=== PATIENT | male | born 1955 | race Caucasian/White ===

== ENCOUNTER 2022-02-22 13:36 | Outpatient (CLI) | payer MEDICARE, SELFPAY ==
--- NOTE | 2022-02-22 14:00 | CRLHL7_ITS ---
For Patients: As a result of the Century Cures Act, medical imaging exams and procedure reports are released immediately into your electronic medical record. You may view this report before your referring provider. If you have questions, please contact your health care provider. INDICATION: Evaluate bladder diverticulum TECHNIQUE: CT pelvis without contrast and after the administration of 350 cc Cystografin through bladder catheter. COMPARISON: None FINDINGS: Fishman catheter is visualized within the bladder. Small locules of air within the bladder lumen likely post catheterization. Bladder wall is diffusely thickened and trabeculated. Bladder diverticulum extending off the right superior posterior aspect of the bladder measuring 7.6 x 6.6 x 12.2 centimeters. 6 millimeter calculus at the right UVJ and the medial aspect of the bladder diverticula with mild upstream right hydroureter and fat stranding adjacent to the distal ureter. Prostatomegaly with the prostate extending into the bladder neck. Diverticulosis. Small right fat filled inguinal hernia. Degenerative changes of the visualized lower lumbar spine. IMPRESSION: Large right posterior superior bladder diverticulum. 6 millimeter calculus at the right UVJ with upstream mild hydroureter and fat stranding adjacent to the ureter, correlate with clinical concern of urinary tract infection possibly involving the upper urinary tract. Prostatomegaly extends into the bladder neck. Diffusely thickened and trabeculated bladder wall. Please note that all CT scans at this facility use dose modulation, iterative reconstruction, and/or weight-based dosing when appropriate to reduce radiation dose to as low as reasonably achievable. Dictated by Evelin Quinonez MD @ 02/23/2022 4:04:29 PM (Electronically Signed)
== END 2022-02-22 13:37 | disposition home or self-care (01) ==
LOC: CT 13:38
PROVIDERS: PCP Physician Assistant Medical; Visit Provider Urology
DX: N32.3 Diverticulum of bladder (principal); N20.1 Calculus of ureter
CPT/HCPCS: 51600; 72194; Q9958; Q9967

== ENCOUNTER 2022-03-12 18:50 | Emergency (ER) | payer MEDICARE, SELFPAY ==
[2022-03-12] VITALS (16 sets, daily range): BP systolic 101–155; BP diastolic 63–83; PULSE 87–117; RESP 12–24; TEMP 37.8–39.2; O2SAT 92–97; BMI 24.8
--- NOTE | 2022-03-12 19:41 | CRLHL7_ITS ---
For Patients: As a result of the Cures Act, medical imaging exams and procedure reports are released immediately into your electronic medical record. You may view this report before your referring provider. If you have questions, please contact your health care provider. INDICATION: Fever. TECHNIQUE: Chest 1 view. COMPARISON: None. FINDINGS: Low lung volumes with mild perihilar atelectasis. No focal consolidation, pleural effusion, or pneumothorax. Normal heart size and pulmonary vascularity. Slight elevation of the right hemidiaphragm. Surgical clips right upper quadrant. The bones are unremarkable. IMPRESSION: No acute cardiopulmonary findings. Dictated by Gabriella Rosas MD @ 03/12/2022 8:46:08 PM (Electronically Signed)
--- NOTE | 2022-03-12 19:49 | ED_ITS ---
HPI - General Adult General Chief complaint: Fever Stated complaint: Fever Blood Clots in Cath Time Seen by Provider: 03/12/22 19:36 History of Present Illness HPI narrative: Patient is a 66-year-old male coming in today concerned about a fever. Fever started this afternoon. Patient is postop day 8 status post a diverticulum resection of his bladder. He does have a leg bag catheter in place. He states that this morning there were blood clots in his urine bag. He has a headache. He has decreased appetite and feels slightly nauseated. He has had no vomiting. He denies coughing, chest pain, shortness of breath. He states that his abdominal pain is improving. He denies any changes in his medications in the last week. States that he has not had any oxycodone since last Friday, had 1 again today because of the headache. Has been having regular bowel movements and is taking MiraLax for that. He states that when he had the blood cause this morning he had a lot of dysuria but that has since passed. His past medical history is significant for arthritis, history of pancreatitis, history of nephrolithiasis, prostate cancer. He has had a tonsillectomy, cholecystectomy, right ankle ORIF Related Data Home Medications Medication Instructions Recorded Confirmed latanoprost 0.005 % eye drops ml OPHTHALMIC (EYE) 03/01/22 03/01/22 tamsulosin 0.4 mg capsule ea PO 03/01/22 03/01/22 timolol maleate 0.5 % eye drops ml OPHTHALMIC (EYE) 03/01/22 03/01/22 Previous Rx's Medication Instructions Recorded cephalexin 500 mg capsule 500 mg PO QID 7 Days #28 cap 03/12/22 Allergies Allergy/AdvReac Type Severity Reaction Status Date / Time atorvastatin AdvReac Mild Headache Verified 03/01/22 08:48 pravastatin AdvReac Mild upset Verified 03/01/22 08:48 stomach, headache Pollen Allergy Unknown Uncoded 03/01/22 08:48 Review of Systems Status of ROS: Reports: 10 or more systems reviewed and unremarkable except as noted in History and below [facility] Medical History Pancreatitis Surgical History History of ankle surgery History of cholecystectomy History of tonsillectomy Normal colonoscopy Family History Paternal Grandfather Amyotrophic lateral sclerosis (ALS) Stroke Polycythemia Brother Diabetes Social History Narrative: 2 children, 1 son-1 daughter never smoked social alcohol use- 10 servings per week Smoking Status: Never smoker Second hand tobacco smoke exposure: No Non-prescribed substance use: denies use service: No Exam Narrative: Exam Narrative: Well-nourished well-developed patient in no acute distress. Alert and oriented. Answers questions appropriately. Mood and affect are appropriate. Thoughts are goal oriented and rational. No tangential or magical thinking noted. Patient speaks in full sentences without needing to catch their breath. Does not appear toxic. HEENT: Normocephalic atraumatic. Pupils are equally round reactive to light. Extraocular muscles are intact. Conjunctivae are moist without any icterus noted. Slightly dry mucous membranes. Posterior pharynx is normal. Neck is soft without any lymphadenopathy or thyromegaly. No masses are appreciated. Cardiovascular: Heart is regular rate and rhythm S1 and S2 are present without any murmurs. Lungs: Patient has bibasilar crackles bilaterally. Takes deep breaths without discomfort. Abdomen: Soft and nondistended with normal bowel sounds. Mild suprapubic tenderness as expected. Urinary catheter in place. Extremities: Bilateral lower extremities are without edema. Normal DP and PT pulses. Skin: Well perfused without any obvious rashes. Const: Vital Signs, click to edit/add: Vital Signs - 24 hr 03/12/22 19:15 03/12/22 19:50 03/12/22 20:15 Temperature 102.6 F H 102.2 F H Pulse Rate [Pulse Oximeter] 108 H Pulse Rate [Right Pulse Oximeter] 117 H 108 H Respiratory Rate 18 16 22 Blood Pressure [Ri ght Arm] 145/83 H Blood Pressure [Ri ght Upper Arm] 155/83 H 145/83 H Pulse Oximetry 95 94 95 03/12/22 20:30 03/12/22 20:45 03/12/22 21:00 Temperature Pulse Rate [Pulse Oximeter] Pulse Rate [Right Pulse Oximeter] 105 H 102 H 102 H Respiratory Rate 24 22 22 Blood Pressure [Ri ght Arm] Blood Pressure [Ri ght Upper Arm] 141/77 H 145/75 H 140/76 H Pulse Oximetry 94 95 95 03/12/22 21:15 03/12/22 21:30 03/12/22 21:53 Temperature 100.0 F H Pulse Rate [Pulse Oximeter] Pulse Rate [Right Pulse Oximeter] 105 H 105 H Respiratory Rate 18 18 Blood Pressure [Ri ght Arm] Blood Pressure [Ri ght Upper Arm] 130/74 137/73 Pulse Oximetry 95 95 03/12/22 22:00 03/12/22 22:15 03/12/22 22:30 Temperature 100.0 F H Pulse Rate [Pulse Oximeter] Pulse Rate [Right Pulse Oximeter] 101 H 97 94 Respiratory Rate 18 18 19 Blood Pressure [Ri ght Arm] Blood Pressure [Ri ght Upper Arm] 130/69 125/74 117/74 Pulse Oximetry 93 97 92 03/12/22 22:45 03/12/22 23:00 03/12/22 23:15 Temperature Pulse Rate [Pulse Oximeter] Pulse Rate [Right Pulse Oximeter] 90 90 90 Respiratory Rate 12 19 18 Blood Pressure [Ri ght Arm] Blood Pressure [Ri ght Upper Arm] 115/66 109/63 106/67 Pulse Oximetry 92 93 92 Course Course Hospital Course: IV was started and labs were drawn. Patient did have a significantly elevated white cell count and his urine appeared to be the source of infection. While he was here he received 2 L of normal saline IV Rocephin. It was after about 1.5 L of saline that his temperature came down, his pulse normalized and patient felt significantly better. He was not hypotensive, did not have an elevated lactate- so while he did fit SIRS criteria prior to treatment, he did not fit sepsis criteria. With such improvement in his symptoms it was decided to discharge the patient home. He has a follow-up appointment tomorrow to have a cystogram and he has a follow-up appointment on which is the day after tomorrow also. He understands that if anything does not feel right he should return to the ER right away. Patient feels very comfortable with this plan, is happy that he is going home. He had no other questions or concerns. Patient will be discharged home with Keflex. Blood and urine cultures pending. Vital Signs Vital signs: Initial Vital Signs Temperature 102.6 F H 03/12/22 19:15 Temperature Source Temporal Artery Scan 03/12/22 19:15 Pulse Rate 117 H 03/12/22 19:15 Respiratory Rate 18 03/12/22 19:15 Blood Pressure 155/83 H 03/12/22 19:15 Blood Pressure Mean 107 03/12/22 19:15 Blood Pressure Position Sitting 03/12/22 19:15 Pulse Oximetry 95 03/12/22 19:15 Oxygen Delivery Method 03/12/22 19:15 Vital Signs Temperature 102.6 F H 03/12/22 19:15 Pulse Rate 117 H 03/12/22 19:15 Respiratory Rate 18 03/12/22 19:15 Blood Pressure 155/83 H 03/12/22 19:15 Pulse Oximetry 95 03/12/22 19:15 Temperature 100.0 F H 03/12/22 22:15 Pulse Rate 90 03/12/22 23:15 Respiratory Rate 18 03/12/22 23:15 Blood Pressure 106/67 03/12/22 23:15 Pulse Oximetry 92 03/12/22 23:15 Medical Decision Making MDM Narrative Medical decision making narrative: 66-year-old male with a postoperative UTI and fever, fitting SIRS criteria- treated in the ER with good results and amelioration of his symptoms- pulse came down to 90, temp came down to 99, blood pressure was stable. Patient will be discharged home with Keflex. He has 2 follow-up appointments already scheduled in the next 24 and 48 hours. He understands to have a low threshold to return to the ER. He had no other questions. Medical Records Medical records reviewed: Yes I reviewed the patient's medical records Lab Data Lab results reviewed: Yes I reviewed the patient's lab results Lab results narrative: D-dimer was elevated-however given his current infection and lack of respiratory symptoms including cough, chest pain, or shortness of breath, I do not feel this represents a PE. Troponin was normal, EKG shows sinus tachycardia. Labs: Lab Results 03/12/22 03/12/22 03/12/22 Range/Units 19:42 19:50 19:50 WBC 27.02 H* (4.50-11.00) K/uL RBC 5.07 (4.30-5.90) m/uL Hgb 15.5 (13.5-17.5) gm/dL Hct 45.6 (37.0-53.0) % MCV 90 (80-100) fL MCH 31 (26-34) pg MCHC 34 (32-36) gm/dL RDW Coeff of Sonal 11.9 (11.5-15.5) % Plt Count 393 (140-440) K/uL Neut % (Auto) 85.4 H (42.0-72.0) % Lymph % (Auto) 5.3 L (20-44) % [place] % (Auto) 7.3 (0.0-11.0) % Eos % (Auto) 1.1 (0.0-7.0) % Baso % (Auto) 0.3 (0.0-3.0) % Neut # (Auto) 23.10 H (1.7-7.0) K/uL Lymph # (Auto) 1.40 (0.90-2.90) K/uL [place] # (Auto) 2.00 H (0.00-0.90) K/UL Eos # (Auto) 0.30 (0.00-0.50) K/uL Baso # (Auto) 0.10 (0.00-0.30) K/uL Abs Immat Gran (auto) 0.17 (0.00-0.30) K/uL Diff Slide Review Acceptable Review (Acceptable) ESR (2-15) mm/hr D-Dimer Quant (PE/DVT) 1.24 H (0.00-0.50) ug/ml Sodium (135-149) mmol/L Potassium (3.6-5.1) mmol/L Chloride (96-114) mmol/L Carbon Dioxide (20-32) mmol/L BUN (7-30) mg/dL Creatinine (0.5-1.5) mg/dL Estimated Creat Clear Estimated GFR ml/min Glucose (60-115) mg/dL Lactate (0.5-1.9) mmol/L Calcium (8.4-10.6) mg/dL Total Bilirubin (0.1-1.5) mg/dL Direct Bilirubin (0.0-0.5) mg/dL AST (12-35) U/L ALT (4-50) U/L Alkaline Phosphatase (40-150) U/L C-Reactive Protein (0.5-1.0) mg/dL Total Protein (6.0-8.3) g/dL Albumin (3.3-5.0) g/dL Urine Color Yellow (Yellow) Urine Appearance Cloudy A (Clear) Urine pH 6.0 (5.0-8.5) Ur Specific [place] 1.020 (1.000-1.030) Urine Protein 1+ A (Negative) Urine Glucose (UA) Negative (Negative) Urine Ketones Negative (Negative) Urine Blood 3+ A (Negative) Urine Nitrite Positive A (Negative) Urine Bilirubin Negative (Negative) Urine Urobilinogen 0.2 (0.2-1.0) Ur Leukocyte Esterase 3+ A (Negative) Urine RBC 10-25 A (0-2) Urine WBC 10-25 A (0-5) Ur Squamous Epith Cells None (None-Few) Urine Bacteria Moderate A (None) SARS-CoV-2 (PCR) (Negative) Influenza Type A (PCR) (Negative) Influenza Type B (PCR) (Negative) 03/12/22 03/12/22 03/12/22 Range/Units 19:50 19:50 19:50 WBC (4.50-11.00) K/uL RBC (4.30-5.90) m/uL Hgb (13.5-17.5) gm/dL Hct (37.0-53.0) % MCV (80-100) fL MCH (26-34) pg MCHC (32-36) gm/dL RDW Coeff of Sonal (11.5-15.5) % Plt Count (140-440) K/uL Neut % (Auto) (42.0-72.0) % Lymph % (Auto) (20-44) % [place] % (Auto) (0.0-11.0) % Eos % (Auto) (0.0-7.0) % Baso % (Auto) (0.0-3.0) % Neut # (Auto) (1.7-7.0) K/uL Lymph # (Auto) (0.90-2.90) K/uL [place] # (Auto) (0.00-0.90) K/UL Eos # (Auto) (0.00-0.50) K/uL Baso # (Auto) (0.00-0.30) K/uL Abs Immat Gran (auto) (0.00-0.30) K/uL Diff Slide Review (Acceptable) ESR 15 (2-15) mm/hr D-Dimer Quant (PE/DVT) (0.00-0.50) ug/ml Sodium 134 L (135-149) mmol/L Potassium 3.8 (3.6-5.1) mmol/L Chloride 99 (96-114) mmol/L Carbon Dioxide 28 (20-32) mmol/L BUN 13 (7-30) mg/dL Creatinine 0.9 (0.5-1.5) mg/dL Estimated Creat Clear 69.35 Estimated GFR 94 ml/min Glucose 113 (60-115) mg/dL Lactate (0.5-1.9) mmol/L Calcium 8.8 (8.4-10.6) mg/dL Total Bilirubin 0.7 (0.1-1.5) mg/dL Direct Bilirubin 0.3 (0.0-0.5) mg/dL AST 32 (12-35) U/L ALT 48 (4-50) U/L Alkaline Phosphatase 120 (40-150) U/L C-Reactive Protein 2.1 H (0.5-1.0) mg/dL Total Protein 7.2 (6.0-8.3) g/dL Albumin 4.2 (3.3-5.0) g/dL Urine Color (Yellow) Urine Appearance (Clear) Urine pH (5.0-8.5) Ur Specific [place] (1.000-1.030) Urine Protein (Negative) Urine Glucose (UA) (Negative) Urine Ketones (Negative) Urine Blood (Negative) Urine Nitrite (Negative) Urine Bilirubin (Negative) Urine Urobilinogen (0.2-1.0) Ur Leukocyte Esterase (Negative) Urine RBC (0-2) Urine WBC (0-5) Ur Squamous Epith Cells (None-Few) Urine Bacteria (None) SARS-CoV-2 (PCR) Negative SARS-CoV-2 (Negative) Influenza Type A (PCR) Negative PCR FLU A (Negative) Influenza Type B (PCR) Negative PCR FLU B (Negative) 03/12/22 03/12/22 Range/Units 19:50 19:50 WBC (4.50-11.00) K/uL RBC (4.30-5.90) m/uL Hgb (13.5-17.5) gm/dL Hct (37.0-53.0) % MCV (80-100) fL MCH (26-34) pg MCHC (32-36) gm/dL RDW Coeff of Sonal (11.5-15.5) % Plt Count (140-440) K/uL Neut % (Auto) (42.0-72.0) % Lymph % (Auto) (20-44) % [place] % (Auto) (0.0-11.0) % Eos % (Auto) (0.0-7.0) % Baso % (Auto) (0.0-3.0) % Neut # (Auto) (1.7-7.0) K/uL Lymph # (Auto) (0.90-2.90) K/uL [place] # (Auto) (0.00-0.90) K/UL Eos # (Auto) (0.00-0.50) K/uL Baso # (Auto) (0.00-0.30) K/uL Abs Immat Gran (auto) (0.00-0.30) K/uL Diff Slide Review (Acceptable) ESR (2-15) mm/hr D-Dimer Quant (PE/DVT) (0.00-0.50) ug/ml Sodium (135-149) mmol/L Potassium (3.6-5.1) mmol/L Chloride (96-114) mmol/L Carbon Dioxide (20-32) mmol/L BUN (7-30) mg/dL Creatinine (0.5-1.5) mg/dL Estimated Creat Clear Estimated GFR ml/min Glucose (60-115) mg/dL Lactate 1.5 (0.5-1.9) mmol/L Calcium (8.4-10.6) mg/dL Total Bilirubin Cancelled (0.1-1.5) mg/dL Direct Bilirubin Cancelled (0.0-0.5) mg/dL AST Cancelled (12-35) U/L ALT Cancelled (4-50) U/L Alkaline Phosphatase Cancelled (40-150) U/L C-Reactive Protein (0.5-1.0) mg/dL Total Protein Cancelled (6.0-8.3) g/dL Albumin Cancelled (3.3-5.0) g/dL Urine Color (Yellow) Urine Appearance (Clear) Urine pH (5.0-8.5) Ur Specific [place] (1.000-1.030) Urine Protein (Negative) Urine Glucose (UA) (Negative) Urine Ketones (Negative) Urine Blood (Negative) Urine Nitrite (Negative) Urine Bilirubin (Negative) Urine Urobilinogen (0.2-1.0) Ur Leukocyte Esterase (Negative) Urine RBC (0-2) Urine WBC (0-5) Ur Squamous Epith Cells (None-Few) Urine Bacteria (None) SARS-CoV-2 (PCR) (Negative) Influenza Type A (PCR) (Negative) Influenza Type B (PCR) (Negative) Imaging Data CT scan - abdomen: Attestation: I have reviewed the pertinent imaging results. Radiologist's impression: FINDINGS: Lower chest: Unremarkable. Liver: Normal in size and attenuation. No suspicious masses. Gallbladder and bile ducts: Post cholecystectomy. Pancreas: Unremarkable. No mass or inflammation. Spleen: Normal in size. No masses. Adrenal glands: Normal in size. No nodules. Kidneys: 3 nonobstructive stones are present in the right kidney. Few tiny nonobstructive stones are in the left kidney. A 6 mm stone appears to be in the left base of the urinary bladder visualized on series 2, image 133. This appears to be adjacent to the UVJ. No hydronephrosis. GI tract: Unremarkable. Normal in caliber. No sign of mass or inflammation. Normal appendix. Vasculature: Abdominal aorta is normal in caliber. Lymph nodes: No lymphadenopathy. Peritoneum/Abdominal Wall: Postoperative changes present in the anterior abdominal wall including subcutaneous air. Pelvic organs: Fishman catheter is within a decompressed bladder. Previously seen large bladder diverticulum is no longer present. There are inflammatory changes in this area. No defined fluid collection to suggest abscess or hematoma. Prostate gland is moderately enlarged. Bones: Unremarkable for age. IMPRESSION: 1. There are postoperative changes presumably from resection of a large urinary bladder diverticulum. There are inflammatory changes in this area but no defined fluid collection to suggest abscess or hematoma. 2. Postoperative changes are otherwise unremarkable. 3. Bilateral nonobstructive nephrolithiasis. 4. No other specific finding to explain fever. Chest x-ray: Attestation: I have reviewed the pertinent imaging results. My impression: Normal chest Radiologist's impression: FINDINGS: Low lung volumes with mild perihilar atelectasis. No focal consolidation, pleural effusion, or pneumothorax. Normal heart size and pulmonary vascularity. Slight elevation of the right hemidiaphragm. Surgical clips right upper quadrant. The bones are unremarkable. IMPRESSION: No acute cardiopulmonary findings. ECG Data Attestation: I personally reviewed and interpreted this ECG as follows: (Sinus tachycardia) Critical Care Time Critical Care Time Total Critical Care Time in Minutes: 90 Discharge Plan Discharge Clinical Impression: SIRS (systemic inflammatory response syndrome), Postoperative urinary tract infection Condition: Improved Additional Instructions: Start antibiotic tomorrow, take your 1st dose in the morning. Increase your amount of daily fluids. Keep all follow-up appointments as scheduled. Return to the ER if you have increasing weakness, pain, fever that does not respond to Tylenol, or vomiting. Prescriptions: New cephalexin 500 mg capsule 500 mg PO QID 7 Days Qty: 28 0RF No Action tamsulosin 0.4 mg capsule PO 0RF Label Comments: TAKE TWO CAPSULES BY MOUTH EVERY DAY latanoprost 0.005 % drops ophthalmic (eye) 0RF Label Comments: PLACE ONE DROP IN EACH EYE ONCE DAILY IN THE EVENING timolol maleate 0.5 % drops ophthalmic (eye) 0RF Label Comments: INSTILL ONE DROP IN EACH EYE ONCE DAILY Follow Up/Referrals: Carlos Eduardo Wilson PA-C [Primary Care Provider] - Stand [facility]
[2022-03-12 20:06] LABS: Lactate* 1.5 mmol/L (0.5-1.9)
[2022-03-12 20:12] LABS: Basophils Percent Auto 0.3 % (0.0-3.0); Eosinophils Percent Auto 1.1 % (0.0-7.0); Hematocrit 45.6 % (37.0-53.0); Hemoglobin* 15.5 gm/dL (13.5-17.5); Immature Granulocytes Abs Auto 0.17 K/uL (0.00-0.30); Lymphocytes Percent Auto 5.3 % (20-44); Mean Corpuscular HGB Conc 34 gm/dL (32-36); Mean Corpuscular Hemoglobin 31 pg (26-34); Mean Corpuscular Volume 90 fL (80-100); Monocytes Percent Auto 7.3 % (0.0-11.0); Neutrophils Percent Auto 85.4 % (42.0-72.0); Platelet Count* 393 K/uL (140-440); RDW Coefficient of Variation % 11.9 % (11.5-15.5); Red Blood Count 5.07 m/uL (4.30-5.90)
[2022-03-12] MEDS: ACETAMINOPHEN 500 MG TABLET 1000 MG PO (20:20)
[2022-03-12] MEDS: 0.9 % SODIUM CHLORIDE 1000 ml 1,000 ML IV ×2 (20:28→21:53)
[2022-03-12 20:44] LABS: Potassium* 3.8 mmol/L (3.6-5.1)
[2022-03-12 20:46] LABS: Creatinine* 0.9 mg/dL (0.5-1.5); Est. Creatinine Clearance* 69.35; Estimated Glomerular Filt Rate 94 ml/min
[2022-03-12 20:47] LABS: Blood Urea Nitrogen* 13 mg/dL (7-30); Carbon Dioxide* 28 mmol/L (20-32); Glucose* 113 mg/dL (60-115)
[2022-03-12 20:50] LABS: C Reactive Protein* 2.1 mg/dL (0.5-1.0)
[2022-03-12 20:54] LABS: Albumin* 4.2 g/dL (3.3-5.0); Chloride* 99 mmol/L (96-114); Sodium* 134 mmol/L (135-149)
[2022-03-12 20:58] LABS: Alanine Aminotransferase* 48 U/L (4-50); Alkaline Phosphatase* 120 U/L (40-150); Aspartate Amino Transferase* 32 U/L (12-35); Bilirubin Direct* 0.3 mg/dL (0.0-0.5); Bilirubin Total* 0.7 mg/dL (0.1-1.5); Calcium* 8.8 mg/dL (8.4-10.6); Total Protein* 7.2 g/dL (6.0-8.3)
[2022-03-12 20:59] LABS: PCR FLU A Negative PCR FLU A (Negative); SARS PCR* Negative SARS-CoV-2 (Negative)
[2022-03-12 21:00] LABS: PCR FLU B Negative PCR FLU B (Negative)
--- NOTE | 2022-03-12 21:01 | PC.NURSE ---
critical WBC 27.[address] Olmos
[2022-03-12 21:03] LABS: Appearance Urine Cloudy (Clear); Bilirubin Urine Negative (Negative); Blood Urine 3+ (Negative); Color Urine Yellow (Yellow); Glucose Urine Negative (Negative); Ketones Urine Negative (Negative); Leukocyte Esterase Urine 3+ (Negative); Nitrite Urine Positive (Negative); Protein Urine 1+ (Negative); Urobilinogen Urine 0.2 (0.2-1.0)
[2022-03-12 21:03] LABS: Slide Review Reflex Yes; White Blood Count* 27.02 K/uL (4.50-11.00)
[2022-03-12 21:04] LABS: Slide Review Acceptable Review (Acceptable)
[2022-03-12 21:08] LABS: Bacteria Urine Moderate
[2022-03-12 21:09] LABS: D Dimer Quantitative* 1.24 ug/ml (0.00-0.50)
[2022-03-12 21:29] LABS: Erythrocyte SedimentationRate* 15 mm/hr (2-15)
--- NOTE | 2022-03-12 21:33 | CRLHL7_ITS ---
For Patients: As a result of the Century Cures Act, medical imaging exams and procedure reports are released immediately into your electronic medical record. You may view this report before your referring provider. If you have questions, please contact your health care provider. INDICATION: Postop fever. TECHNIQUE: CT abdomen and pelvis without contrast. COMPARISON: 02/22/2022. FINDINGS: Lower chest: Unremarkable. Liver: Normal in size and attenuation. No suspicious masses. Gallbladder and bile ducts: Post cholecystectomy. Pancreas: Unremarkable. No mass or inflammation. Spleen: Normal in size. No masses. Adrenal glands: Normal in size. No nodules. Kidneys: 3 nonobstructive stones are present in the right kidney. Few tiny nonobstructive stones are in the left kidney. A 6 mm stone appears to be in the left base of the urinary bladder visualized on series 2, image 133. This appears to be adjacent to the UVJ. No hydronephrosis. GI tract: Unremarkable. Normal in caliber. No sign of mass or inflammation. Normal appendix. Vasculature: Abdominal aorta is normal in caliber. Lymph nodes: No lymphadenopathy. Peritoneum/Abdominal Wall: Postoperative changes present in the anterior abdominal wall including subcutaneous air. Pelvic organs: Fishman catheter is within a decompressed bladder. Previously seen large bladder diverticulum is no longer present. There are inflammatory changes in this area. No defined fluid collection to suggest abscess or hematoma. Prostate gland is moderately enlarged. Bones: Unremarkable for age. IMPRESSION: 1. There are postoperative changes presumably from resection of a large urinary bladder diverticulum. There are inflammatory changes in this area but no defined fluid collection to suggest abscess or hematoma. 2. Postoperative changes are otherwise unremarkable. 3. Bilateral nonobstructive nephrolithiasis. 4. No other specific finding to explain fever. Please note that all CT scans at this facility use dose modulation, iterative reconstruction, and/or weight-based dosing when appropriate to reduce radiation dose to as low as reasonably achievable. Dictated by Raciel Pinedo MD @ 03/12/2022 11:31:08 PM (Electronically Signed)
[2022-03-12] MEDS: cefTRIAXone 1 GM in 0.9 % SODIUM CHLORIDE Mini-bag 100 ML IVPB (21:54)
== END 2022-03-12 23:54 | disposition home or self-care (01) ==
PROVIDERS: Emergency Provider Family Medicine; PCP Physician Assistant Medical
DX: R50.9 Fever, unspecified (principal); R65.10 Systemic inflammatory response syndrome (SIRS) of non-infectious origin without acute organ dysfunction
CPT/HCPCS: 36415; 71045; 74176; 80048; 80076; 81001; 83605; 84484; 85025; 85379; 85651; 86140; 87040; 87086; 87186; 87502; 87635; 93005; 96365; 99285; 99291; 99292; A9270; J0696; J7030

== ENCOUNTER 2022-03-13 14:24 | Outpatient (CLI) | payer MEDICARE, SELFPAY ==
--- NOTE | 2022-03-13 15:00 | CRLHL7_ITS ---
For Patients: As a result of the Century Cures Act, medical imaging exams and procedure reports are released immediately into your electronic medical record. You may view this report before your referring provider. If you have questions, please contact your health care provider. Indication: FOLLOW UP DIVERTICULUM OF BLADDER. HAD SURGERY 1 WEEK AGO TO REPAIR DIVERTICULUM Technique: CT pelvis performed without intravenous contrast. 140 cc Gastrografin injected through the indwelling Fishman catheter into the bladder. Prevoid and postvoid images acquired with routine reformations. Please note that all CT scans at this facility use dose modulation, iterative reconstruction, and/or weight-based dosing when appropriate to reduce radiation dose to as low as reasonably achievable. Comparison: 03/12/22, 02/22/2022 Findings: Postop changes large right bladder diverticulum resection again noted with postoperative subcutaneous and intrapelvic free air. Mild postop inflammatory changes surrounding the bladder again noted. Diffuse bladder wall thickening is present with trabeculation. No contrast extravasation. There is a lobular mass within the posterior bladder measuring 2.1 cm. Postvoid images demonstrate adjacent bladder calcifications without evidence of extravasation. Chronic sigmoid diverticulosis is noted. No drainable fluid collection. Right inguinal hernia containing fat. No fracture. Impression: Similar postop changes with postoperative related subcutaneous/intrapelvic free-air and mild pelvic stranding without drainable abscess or fluid collection. No extravasation of contrast from the bladder to suggest leakage. Diffuse bladder wall thickening with trabeculation again noted. There is a mass within the posterior bladder measuring 2.1 cm. Stable right inguinal hernia containing fat measuring 3.9 cm. Chronic sigmoid diverticulosis. Please note that all CT scans at this facility use dose modulation, iterative reconstruction, and/or weight-based dosing when appropriate to reduce radiation dose to as low as reasonably achievable. Dictated by Jean Paul Fernando MD @ 03/14/2022 10:51:03 AM (Electronically Signed)
== END 2022-03-13 14:25 | disposition home or self-care (01) ==
LOC: CT 14:25
PROVIDERS: PCP Physician Assistant Medical; Visit Provider Urology
DX: N32.3 Diverticulum of bladder (principal); K40.90 Unilateral inguinal hernia, without obstruction or gangrene, not specified as recurrent; K57.30 Diverticulosis of large intestine without perforation or abscess without bleeding
CPT/HCPCS: 51600; 72194; Q9958

== ENCOUNTER 2022-04-03 07:59 | Outpatient (CLI) | payer MEDICARE, SELFPAY ==
--- NOTE | 2022-04-03 09:30 | CRLHL7_ITS ---
For Patients: As a result of the Century Cures Act, medical imaging exams and procedure reports are released immediately into your electronic medical record. You may view this report before your referring provider. If you have questions, please contact your health care provider. Indication: POST PRECEDURAL PAIN. BURNING WITH URINATION Technique: Postcontrast CT abdomen and pelvis. 90 cc Isovue 370 intravenous contrast. Delayed images through the pelvis also performed. Routine reformations acquired. Please note that all CT scans at this facility use dose modulation, iterative reconstruction, and/or weight-based dosing when appropriate to reduce radiation dose to as low as reasonably achievable. Comparison: 03/13/22, 03/12/22, 02/22/2022. Findings: Fishman catheter is no longer present. There is right lateral bladder wall thickening measuring up to 1.9 cm which is similar to the prior studies. Postop changes to the right posterior lateral bladder wall noted from large bladder diverticulum resection. There is no extravasation of contrast. Normal appearance of the right distal ureter. Chronic curvilinear density adjacent to the right lateral bladder wall and chronic right lower pelvic phlebolith. The prostate is enlarged with lobular masslike area along the superior prostate. Diminished bladder wall thickening involving the left bladder wall compared to the prior studies. Stable appearance of the small fat filled right inguinal hernia. No drainable fluid collection or abscess. Sigmoid diverticulosis. Resolution of previously noted postoperative free air. Normal renal enhancement bilaterally. Nonobstructing right renal stones. Stable nodule adjacent to the right adrenal gland. Left adrenal gland normal. Spleen unremarkable. Normal pancreas. No intrahepatic mass. No ascites. Gallbladder absent. No bowel obstruction. Postop changes midline abdominal wall without incisional hernia. Lung bases clear. No fracture. Degenerative changes. Impression: Persistent right lateral bladder wall thickening status post right bladder diverticulum resection. Fishman catheter has been removed. For solution of postoperative free air. Also resolution of bladder wall thickening elsewhere including the left bladder wall and anterior bladder wall. No abscess or pelvic free fluid. Normal appearance of the right distal ureter. No hydronephrosis. No extravasation of contrast. Please note that all CT scans at this facility use dose modulation, iterative reconstruction, and/or weight-based dosing when appropriate to reduce radiation dose to as low as reasonably achievable. Dictated by Jean Paul Fernando MD @ 04/03/2022 9:06:48 AM (Electronically Signed)
== END 2022-04-03 08:00 | disposition home or self-care (01) ==
PROVIDERS: PCP Physician Assistant Medical
DX: G89.18 Other acute postprocedural pain (principal); R30.9 Painful micturition, unspecified
CPT/HCPCS: 74177; Q9967

== ENCOUNTER 2022-10-15 08:02 | Outpatient (CLI) | payer MEDICARE, SELFPAY ==
[2022-10-15 14:19] LABS: PSA Screen* 9.67 ng/mL (0.10-4.00)
== END 2022-10-15 08:03 | disposition home or self-care (01) ==
LOC: FRMREF 08:02
PROVIDERS: PCP Physician Assistant Medical; Visit Provider Physician Assistant Medical
DX: C61 Malignant neoplasm of prostate (principal)
CPT/HCPCS: 84153

== ENCOUNTER 2023-05-20 08:02 | Outpatient (CLI) | payer MEDICARE, SELFPAY | END 2023-05-20 08:03 | disposition home or self-care (01) | PROVIDERS: PCP Physician Assistant Medical; Referring Provider Physician Assistant Medical; Visit Provider Physician Assistant Medical | DX: C61 Malignant neoplasm of prostate (principal); N40.0 Benign prostatic hyperplasia without lower urinary tract symptoms | CPT/HCPCS: 84153 ==

== ENCOUNTER 2023-09-02 13:48 | Outpatient (REF) | payer MEDICARE, SELFPAY ==
--- OUTSIDE RECORDS SUMMARY | 2023-09-02 14:33 | XMS_ITS | Encounter Summary ---
Author Name Unknown Organization [facility] Address [address] [place] [address] Care Team Providers Care Chimney Supervisor Brick Name Role Phone Unavailable Primary Care Provider Unavailabl e Reason for Visit * Appointment Request (Routine) - Closed Specialty Diagnoses / Procedures Referred By Contfrances t Referred To Contact Radiation Oncology Carlos Eduardo Wilson P.ADarlene [address] [place] [address] Referral ID Status Reason Start Date Expiration Date Visits Re quested Visits Authorized [id number] Closed 01/28/2023 01/28/2024 1 1 Encounter Details Date Type Department Care Team (Latest Contact Info) Description 02/14/2023 8:06 AM CDT - 02/22/2023 10:01 PM CDT Hospital Encounter Department of Radiation Oncology in [place], [place] [address] [place] [id number] Reynaldo Whitfield M.D. [address] [place] [address] Primary Malignant Neoplasm Of Prostate (HCC) (Primary Dx) Social History Tobacco Use Types Packs/Day Years Used Date Smoking Tobacco: Former Cigarettes Q uit: 1972 Smokeless Tobacco: Never Alcohol Use Standard Drinks/Week Comments Yes 0 (1 standard drink = 0.6 oz pur e alcohol) 1-2/day Nutrition Answer Date Recorded Nutrition: EVOO Fat Source Unknown 01/22 Nutrition: Servings of Fruits/Vegetables per Day Not on file 01/22/2023 Dental Answer Date Recorded Dental: Regular Dentist Unknown 01/23/20 Sex and Gender Information Value Date Recorded Sex Assigned at Not on file Gender Identity Not on file Sexual Orientation Not on file documented as of this encounter Last Filed Vital Signs Vital Sign Reading Time Taken Comments Blood Pressure 143/76 02/14/2023 8:14 AM CDT Pulse 53 02/14/2023 8:14 AM CDT Temperature 36.4 ??C (97.5 ??F) 02/14/2023 8:14 AM CD T Respiratory Rate - - Oxygen Saturation - - Inhaled Oxygen Concentration - - Weight 74.6 kg (164 lb 8 oz) 02/14/2023 8:14 AM CDT Height - - Body Mass Index - - documented in this encounter Medications at Time of Discharge Medication Sig Dispensed Refills Start Date End Date acetaminophen (TYLENOL) 500 mg tablet Take 1,000 mg by mouth as needed. 0 multivitamin tablet Take by mouth. 0 08/04/2009 sildenafiL (VIAGRA) 100 mg tablet Take 100 mg by mouth daily. 0 05/24/2022 tamsulosin (FLOMAX) 0.4 mg 24 hr capsule Take 0.4 mg by mouth daily. 0 documented as of this encounter Consult Notes * Poppy Perla APRN, C.N.P., D.N.P. - 02/14/2023 8:30 AM CDT SUBJECTIVE REQUESTING PROVIDER Carlos Eduardo Wilson, PSunAAshley. REASON FOR CONSULT 1. Primary Malignant Neoplasm Of Prostate (HCC) SUPERVISED BY: Reynaldo Whitfield M.D. ([phone]) HISTORY OF PRESENT ILLNESS Martin Olivas is a 67 y.o. male with favorable intermediate prostate cancer, who presents today for an opinion regarding the role of radiation therapy in the management of the patient's disease. His oncologic history is as follows: Oncology History Primary Malignant Neoplasm Of Prostate (HCC) 04/01/2017 Other 04/01/2017: PSA 3.59 ng/mL 08/31/2021: PSA 7.99 ng/mL 09/05/2021 Other Evaluated by primary care provider for yearly wellness exam and elevated PSA. Patient noted to haveelevated PSA in 2019 but never followed up. He does experience weak stream during the day. Recommended referral to Urology for elevated PSA and BPH symptoms. 09/28/[address] Jean Paul Reveles[place] [facility]. JACOBO demonstrated 40 g prostate without nodules but mild right sided firmness towards base. Recommended prostate biopsy. Cystoscopy performed which demonstrated very large bladder diverticulum. Recommended TURP procedure and possible bladder diverticulum removal. Urine cytology negative for high-grade urothelial carcinoma. 10/02/[address] abdomen and pelvis demonstrated large, narrow necked, right Hutch bladder diverticulum, moderateprostatomegaly with slight mass effect on the urinary bladder and aforementioned diverticulum, no carlie urothelial disease within the bladder, diverticulum, or upper tract, few tiny right and calyceal stones present, no hydroureteronephrosis or peripheral fat stranding on either side. No complex renal cysts or solid renal masses 11/14/2021 Biopsy/Pathology Needle core biopsy demonstrated prostatic adenocarcinoma, Rosemarie score 3+3 = 6 in 4/12 cores, right medial apex, right lateral mid, right lateral apex, and left lateral apex. 01/08/2022 Other Follow up with Dr. Johnson. Recommended bladder diverticulectomy with radical prostatectomy. Patient did not want to proceed with radical prostatectomy at that time. They agreed to continue active surveillance for prostate cancer. 02/22/[address] pelvis with and without contrast Impression: Large right posterior superior bladder diverticulum. 6 mm calculus at the right UVJ with upstream mild hydroureter and fat stranding adjacent to the ureter, correlate with clinical concern of urinary tract infection possibly involving the upper urinarytract. Prostatomegaly extends into the bladder neck. Diffusely thickened and trabeculated bladder wall 03/04/2022 Surgery and Procedures Robot assisted bladder diverticulectomy performed by Dr. Carlos Johnson Final Diagnosis URINARY BLADDER, DIVERTICULUM, EXCISION: -urinary bladder diverticulum with erosion and mild atypia, favor reactive 03/12/[address] abdomen and pelvis demonstrated enlarged prostate gland 04/03/[address] abdomen pelvis demonstrated enlarged prostate with lobular masslike area along the superior prostate 10/09/2022 Critical Imaging MR pelvis prostate Findings: Peripheral zone: Lesion 1. Left midgland to base anterior peripheral zone measuring 2.4 x 0.8 x 1.5 cm T2 appearance: Circumscribed, homogeneous hypointense focus/mass greater or equal to 1.5 cm Diffusion-weighted imaging: Focal markedly hypointense on ADC and markedly hyperintense on DWI. Enhancement: Positive. Prostate margin: Indeterminate. There is broad capsular contact Diffusion abnormality meets PI-RADS 5 Transitional zone: BPH. No suspicious foci No seminal vesicle invasion No pelvic lymphadenopathy No lesions in the visualized bones 10/15/2022 Other PSA 9.67 ng/mL 10/24/2022 Other Follow up with Dr. Johnson, JACOBO demonstrated 35 g prostate with no nodules, left apical firmness. Recommended additional biopsy for continued rising PSA. 12/18/2022 Biopsy/Pathology Final diagnosis A) PROSTATE, RIGHT MEDIAL APEX, NEEDLE BIOPSY: 1. Benign prostatic tissue 2. No atypical foci, high-grade prostatic intraepithelial neoplasm or malignancy B) PROSTATE, RIGHT LATERAL APEX, NEEDLE BIOPSY: 1. Benign prostatic tissue 2. No atypical foci, high-grade prostatic intraepithelial neoplasm or malignancy C) PROSTATE, RIGHT MEDIAL MID, NEEDLE BIOPSY: 1. Benign prostatic tissue 2. No atypical foci, high-grade prostatic intraepithelial neoplasm or malignancy D) PROSTATE, RIGHT LATERAL MID, NEEDLE BIOPSY: 1. Benign prostatic tissue 2. No atypical foci, high-grade prostatic intraepithelial neoplasm or malignancy E) PROSTATE, RIGHT MEDIAL BASE, NEEDLE BIOPSY: 1. Benign prostatic tissue 2. No atypical foci, high-grade prostatic intraepithelial neoplasm or malignancy F) PROSTATE, RIGHT LATERAL BASE, NEEDLE BIOPSY: 1. Benign prostatic tissue 2. No atypical foci, high-grade prostatic intraepithelial neoplasm or malignancy G) PROSTATE, LEFT MEDIAL APEX, NEEDLE BIOPSY: 1. Benign prostatic tissue 2. No atypical foci, high-grade prostatic intraepithelial neoplasm or malignancy H) PROSTATE, LEFT LATERAL APEX, NEEDLE BIOPSY: 1. Benign prostatic tissue 2. No atypical foci, high-grade prostatic intraepithelial neoplasm or malignancy I) PROSTATE, LEFT MEDIAL MID, NEEDLE BIOPSY: 1. Benign prostatic tissue 2. No atypical foci, high-grade prostatic intraepithelial neoplasm or malignancy J) PROSTATE, LEFT LATERAL MID, NEEDLE BIOPSY: 1. Adenocarcinoma, Mckittrick score 3+3=6 (grade group 1) 2. Total surface area involved: <5% 3. Number of needle biopsy cores involved: 1 of 1 4. Perineural invasion: Not identified K) PROSTATE, LEFT MEDIAL BASE, NEEDLE BIOPSY: 1. Benign prostatic tissue 2. No atypical foci, high-grade prostatic intraepithelial neoplasm or malignancy L) PROSTATE, LEFT LATERAL BASE, NEEDLE BIOPSY: 1. Adenocarcinoma, Mckittrick score 3+3=6 (grade group 1) 2. Total surface area involved: <5% 3. Number of needle biopsy cores involved: 1 of 1 4. Perineural invasion: Not identified M) PROSTATE, LESION 1; LEFT PERIPHERAL ZONE, NEEDLE BIOPSY: 1. Adenocarcinoma, Mckittrick score 3+4=7 (grade group 2) 2. Total surface area involved: 35% 3. Number of needle biopsy cores involved: 4 of 6 4. Perineural invasion: Present 5. Percentage of pattern 4: <10% 01/21/2023 Other Follow up with Dr. Johnson to discuss treatment options, including radiation therapy and radical prostatectomy. Patient indecisive at this time. INTERVAL HISTORY The patient was seen and examined today with Dr. Whitfield. The patient reports feeling well overall. He reports good energy. He remains active with odd jobs. He reports weak urinary stream. This has been present since prior to his bladder diverticulectomy with some improvement. He denies urinary frequency, urgency, hematuria, dysuria, or leakage. He deniesnocturia. He does take 0.8 mg Flomax daily. He does report headaches with use of this medication. He reports daily soft bowel movements without blood or pain. He denies any bowel leakage. He does experience erectile dysfunction and has been for some years. He uses [id number] sildenafil and finds this helpful. The patient denies a history of prior radiation therapy, connective tissue disorder s, or inflammatory bowel disease. The patient denies any implanted devices. His ECOG performance status is 0. AUA SYMPTOM INDEX: 02/14/23: 7 (0, 1, 0, 1, 4, 0, 1) IIEF-5 QUESTIONNAIRE: 02/14/23: patient did not complete REVIEW OF SYSTEMS Review of systems was negative except as documented above. PATIENT REPORTED SYMPTOM SCREEN FATIGUE (Scale: 0 = no fatigue; 10 = worst fatigue you can imagine): 1 PAIN (Scale: 0 = no pain; 10 = worst pain you can imagine): 1 OVERALL QUALITY OF LIFE (Scale: 0 = as bad as can be; 10 = as good as can be): 8 PAST MEDICAL HISTORY Past Medical History: Diagnosis Date BenignProstatic Hyperplasia Localized Keratosis Actinic Osteoarthritis Stone Kidney PAST SURGICAL HISTORY Past Surgical History: Procedure Laterality Date CHOLECYSTECTOMY TONSILLECTOMY FAMILY HISTORY Family History Problem Relation Age of Onset Actinic keratosis Mother Cancer Neg Hx SOCIAL HISTORY Social History Socioeconomic History Marital status: Number of children: 2 Tobacco Use Smoking status: Former Types: Cigarettes Quit date: 1971 Years since quittin.5 Smokeless tobacco: Never Substance and Sexual Activity Alcohol use: Yes Comment: 1-2/day OBJECTIVE BP 143/76 (BP Location: Right arm, Patient Position: Sitting, Cuff Size: Regular) Pulse (!) 53 Temp 36.4 ??C (Temporal) Wt 74.6 kg PHYSICAL EXAM General: Patient is alert and oriented in no apparent distress. Neck: Supple. Lymph: No palpable cervical, supraclavicular, infraclavicular, axillary, or inguinal adenopathy. Lungs: Clear to auscultation bilaterally. Heart: Regular rate and rhythm. Normal S1 and S2. Abdomen: Soft, non-tender, non-distended. Normal active bowel sounds are present. 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 I had a discussion with him regarding his prostate cancer diagnosis including his staging. We discussed that he has favorable intermediate risk prostate cancer. We reviewed the NCCN guidelines. We also discussed the risks, benefits, and alternatives of radiotherapy in this setting. We discussed external beam radiation therapy options in 20 or 26 fractions. We discussed high-dose and low-dose rate brachytherapy radiation therapy options. We also discussed the option of stereotactic body radiation therapy in 5 fractions. We discussed fiducial markers and rectal spacer placement, which would be required with SBRT treatment. I discussed the logistics, as well as, the acute and chronic side effects of radiotherapy. The acute side effects are common and may include, but not limited to, urinary frequency and urgency, dysuria, bowel frequency and urgency, diarrhea, gaseous bloating and discomfort, erectile dysfunction, radiation dermatitis, loss of pubic hair, and fatigue. Long-term side effects may include, but not limited to, mild increase in urinary and bowel frequency, as well as, more rare side effects including radiation cystitis, radiation proctitis, urethral stenosis requiring dilatation, fistula formation, increasing arthritis of the hips, small bowel obstruction, and a very small risk of secondary malignancy. I discussed the full bladder, empty rectum protocol with him.The patient was provided with a written summary of recommendations. At this time, the patient is indecisive about surgery versus radiation therapy. He would like to continue thinking about this for the next week. He will contact us about his decision once it has beenmade. Patient seen in collaboration with Dr. Whitfield, please see his attestation for additional information. The patient was provided with our contact information. He was asked to contact us sooner w ith questions or concerns. He verbally expressed his understanding of the plan. EDUCATION Ready to learn, no apparent learning barriers were identified; learning preferences include listening. Explained diagnosis and treatment plan; patient expressed understanding of the content. PRIMARY PROVIDER Steve Thibodeaux PA-C I personally spent 60 minutes in care of the patient today. Time includes both non face to face andface to face patient care. Signed by: Poppy Perla APRN, C.N.P., Sulaiman.N.P. 02/14/2023 10:44 AM CDT [facility] [address] [place] [address] Associated attestation - Reynaldo Whitfield M.D. - 02/22/2023 10:00 PM CDT I saw and evaluated the patient and participated in the kaufman portions of the service. I reviewed thedocumentation of Poppy Perla C.N.P. and agree with the findings and plan. Mr. Martin Olivas is a 67 y.o. male with favorable intermediate risk, stage IIB (cT2a, cN0, cM0 PSA 9.67, grade group 2) adenocarcinoma of the prostate. We are asked by Ms. Wilson to evaluate the patient for radiotherapy. His oncologic history is well detailed in Ms. Perla's note. In brief, a PSA of 7.99 ng/mL on August 31, 2021 prompted an evaluation with Dr. Reveles with a JACOBO which revealed some firmness on the right side base. CT scan pelvis October 02, 2021 revealed prostatomegaly and a bladder diverticulum. Prostate biopsy on November 14, 2021 confirmed Mckittrick 3 + 3 disease on the right and in the left lateral apex in [address] Johnson performed a robot-assisted bladder diverticulectomy on January 08, 2022. Pathology was negative for malignancy. An MRI of the prostate on October 09, 2022 revealed a PI-RADS 5 lesion in the left mid gland base in the peripheral zone that measured 2.4 cm. PSA was 9.67 ng/mL on October 15, 2022. Prostate biopsy on December 15, 2022 revealed Rosemarie 3 + 3 disease in the left mid and lateral base and Mckittrick 3 + 4 disease in left peripheral zone MR lesion with a total 6 of 18 cores positive. The patient reports he is currently feeling well, but he does have a weak urinary stream despite taking Flomax 0.8 mg daily. He has had longstanding erectile dysfunction. His ECOG performance status is 0 OBJECTIVE BP 143/76 (BP Location: Right arm, Patient Position: Sitting, Cuff Size: Regular) Pulse (!) 53 Temp 36.4 ??C (Temporal) Wt 74.6 kg PHYSICAL EXAM General: Patient is awake, alert, and oriented to person, place, and time. No apparent distress. The patient is here today by himself. DIAGNOSTICS I reviewed the patient's pathology reports and imaging. ASSESSMENT / PLAN #1 Stage IIB (cT2a, cN0, cM0 PSA 9.67, grade group 2) adenocarcinoma of the prostate #2 Bladder diverticulectomy on January 08, 2022 #3 Erectile dysfunction, preceding diagnose; sildenafil helpful I had a detailed discussion with the patient regarding the risks, benefits, and alternatives of radiotherapy in this setting. I consulted the NCCN guidelines in formulating my recommendations and reviewed these with him. The patient has already discussed prostatectomy with Dr. Johnson; hence, I focused my discussion on radiotherapy options. These include: 1. External beam radiotherapy alone to a dose of 60 Gy in 20 fractions or 70.2 Gy in 26 fractions utilizing IMRT; 2. One low dose rate implant or 2 high dose rate prostate brachytherapy implants; 3. Stereotactic body radiation therapy to a dose of 36.25 to 40 Gy in 5 fractions. Given his favorable-intermediate risk disease, I would not recommend the addition of androgen deprivation therapy. We discussed the use of a Hydrogel spacer. We discussed the results of the ProtecT trial that randomized patients to surgery, radiotherapy, orobservation (Fady et al, [facility], 2016) that showed that surgery and radiotherapy were equally efficacious. We also discussed the fact that surgical salvage is typically not possible after any form of prostate radiotherapy. I also discussed the indications for adjuvant radiotherapy following prostatectomy as well as salvage radiotherapy in the setting of rising PSA. I discussed the logistics as well as the acute and chronic side effects associated with treatment in detail. For a complete listing of these, please see Minda's note. After this discussion, I provided the patient with a written summary of my recommendations. His questions were answered to his verbalized satisfaction. The patient is still contemplating his options.He will let us know if he would like to proceed with radiotherapy. My thanks to Ms. Wilson and Dr. Johnson for the opportunity to participate in this patient's care. I have spent 50 minutes caring for this patient including [id number] and sct-mmkf-xi-face time. Signed by: Reynaldo Whitfield M.D. 02/22/23 10:00 PM CDT [facility] [place] documented in this encounter Miscellaneous Notes * Addendum Note - Radha Welch, C.N.A. - 02/14/2023 8:30 AM CDTEncounter addended by: Radha Welch C.N.A. on: 02/26/2023 7:08 AM Actions taken: Letter saved documented in this encounter Plan of Treatment Not on file documented as of this encounter Visit Diagnoses Diagnosis Primary Malignant Neoplasm Of Prostate (HCC)- Primary documented in this encounter
--- OUTSIDE RECORDS SUMMARY | 2023-09-02 14:33 | XMS_ITS | Clinical Summary ---
Author Name Unknown Organization [facility] Address [address] [place] [address] Care Team Providers Care Ship'S Cook Name Role Phone Fantasma Judd MD Primary Care Provider [phone] Source Comments You are receiving this document as you are listed as the primary care provider,follow-up provider, or the patient has been referred to you for consultation.This is in compliance with the Medicare and[facility] E[facility] Incentive Program,which states Providers who transition their patient to another setting of careor provider of care or refers their patient to another provider of care shouldprovide summary care record for each transition of care or referral. [facility] Allergies No known active allergies Medications Medication Sig Dispensed Refills Start Date End Date Status latanoprost (XALATAN) 0.005 % eye drop solution 2 01/19/2019 Active Active Problems Problem Noted Date Diagnosed Date Osteoarthritis of multiple joints 02/19/2019 Nephrolithiasis 02/19/2019 Elevated PSA 02/19/2019 Social History Tobacco Use Types Packs/Day Years Used Date Smoking Tobacco: Never Smokeless Tobacco: Never Alcohol Use Standard Drinks/Week Comments Yes 0 (1 standard drink = 0.6 oz pur e alcohol) Sex and Gender Information Value Date Recorded Sex Assigned at Not on file Gender Identity Not on file Sexual Orientation Not on file Last Filed Vital Signs Vital Sign Reading Time Taken Comments Blood Pressure 144/86 02/19/2019 1:16 PM CDT Pulse 85 02/19/2019 1:16 PM CDT Temperature - - Respiratory Rate - - Oxygen Saturation - - Inhaled Oxygen Concentration - - Weight 76.7 kg (169 lb) 02/19/2019 1:16 PM CDT Height 127 cm (4' 2) 02/19/2019 1:16 PM CDT Body Mass Index 47.53 02/19/2019 1:16 PM CDT Plan of Treatment Health Maintenance Due Date Last Done Comments Colon Cancer Screening Plan Due 1955 Hep C Screening (Preventive Services) 1955 COVID-19 Vaccine (#1) 1954 Adult Preventive Visit 1972 Cholesterol 1989 Zoster/Shingles (1 of 2) 2004 Pneumococcal 65+ Yrs (2 - PCV) 03/22/2021 03/22/2020 DTaP/Tdap/Td (3 - Tdap) 12/11/2022 12/12/19 13, 12/06/2007 Influenza (#1) 2023 05/23/2020, 07/12/2019 HepA Aged Out No longer eligi ble based on patient's age to complete this topic HepB Aged Out No longer eligi ble based on patient's age to complete this topic Hib Aged Out No longer eligi ble based on patient's age to complete this topic IPV (Polio) Aged Out No longer eligi ble based on patient's age to complete this topic MCV4 Aged Out No longer eligi ble based on patient's age to complete this topic Care Teams Ship'S Cook Relationship Specialty Start Date End Date Fantasma Judd MD [address] [facility], [place] [id number] PCP - General Family Practice 01/14/19
--- OUTSIDE RECORDS SUMMARY | 2023-09-02 14:33 | XMS_ITS | Clinical Summary ---
Author Name Unknown Organization [facility] Address [address] [place] [address] Care Team Providers Care Slinger Sequins Name Role Phone Unavailable Primary Care Provider Unavailabl e Source Comments Patient records contain information from all sites at [facility]. For routine questions regarding patient records, call [phone] during business hours, M-F 8:00 AM - 5:00 PM Central Time. Record requests for emergency care only can be directed to [phone] at any time.[facility] Allergies Active Allergy Reactions Criticality Noted Date Comments Pollen Extracts Rash 10/15/2022 Medications Medication Sig Dispensed Refills Start Date End Date Status acetaminophen (TYLENOL) 500 mg tablet Take 1,000 mg by mouth as needed. 0 Active tamsulosin (FLOMAX) 0.4 mg 24 hr capsule Take 0.4 mg by mouth daily. 0 Active sildenafiL (VIAGRA) 100 mg tablet Take 100 mg by mouth daily. 0 05/24/2022 Active multivitamin tablet Take by mouth. 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/07/2023 Cancer Staging:Clinical stage from 12/18/2022:Stage IIB(cT2a, cN0, cM0, PSA: 9.7, Grade Group: 2) - Unsigned Family History Medical History Relation Name Comments Actinic keratosis Mother Cancer Neg Hx Relation Name Status Comments Mother Social History Tobacco Use Types Packs/Day Years [...] - - Body Mass Index - - Plan of Treatment Health Maintenance Due Date Last Done Comments Abdominal Aortic Aneurysm (A AA) Screen 1954 CT Colonography 1954 Cologuard 1955 Colonoscopy 1954 Colorectal Cancer Screening 1954 FIT 1954 Hepatitis C Screening 1954 Zoster Vaccines (1 of 2) 2004 Pneumococcal vaccine (65+ ye ars) (2 of 2 - PCV) 03/22/2021 03/22/2020, 09/25/2019, 08/25/2019, Additional history exists COVID-19 Vaccine (4 - 2022-2 4 season) 2023 08/29/2021, 11/22/2020, 10/25/2020 Depression Screening (Annual PHQ-2) 08/25/2023 Fall Risk Screen (Annual) 08/25/2023 Fasting Glucose for Diabetes Screening 03/05/2025 03/05/2022 DTaP,Tdap,and Td Vaccines (4 - Td or Tdap) 02/28/2033 02/28/2023, 12/11/2012, 12/06/2007 Influenza Vaccine Completed 06/20/2023, , 06/23/2022, Additional history exists
--- OUTSIDE RECORDS SUMMARY | 2023-09-02 14:33 | XMS_ITS ---
Author Name Unknown Organization [facility] Address [address] [place] [address] Care Team Providers Care Slab Lifting Supervisor Name Role Phone Unavailable Unavailable Unavailable Surgery Details Not on file Complications Check Surgery Details section. Procedure Estimated Blood Loss Check Surgery Details section. Procedure Findings Check Surgery Details section. Procedure Specimens Taken Check Surgery Details section.
--- OUTSIDE RECORDS SUMMARY | 2023-09-02 14:33 | XMS_ITS | Clinical Summary ---
Author Name Unknown Organization [facility] Address [address] [place] [address] Care Team Providers Care High School Academic Coach Name Role Phone Carlos Eduardo Wilson PA-C Primary Care Provider [phone] Allergies Active Allergy Reactions Criticality Noted Date Comments Atorvastatin Headache 03/04/2022 Morphine Rash Low 03/04/2022 Pravastatin Headache,GI Disturbance 03/04/2022 Medications Medication Sig Dispensed Refills Start Date End Date Status latanoprost (XALATAN) 0.005 % ophthalmic solution Place 1 drop into both eyes every evening 0 Active tamsulosin (FLOMAX) 0.4 MG capsule Take 0.8 mg by mouth daily 0 Active timolol maleate (TIMOPTIC) 0.5 % ophthalmic solution Place 1 drop into both eyes daily 0 Active acetaminophen (TYLENOL) 500 MG tablet Take 1,000 mg by mouth every 6 hours as needed for mild pain 0 Active multivitamin (CENTRUM SILVER) tabletIndications: Bladder diverticulum Take 1 tablet by mouth daily 0 03/18/2022 Active oxyCODONE (ROXICODONE) 5 MG tabletIndications: Bladder diverticulum Take 1 tablet (5 mg) by mouth every 6 hours as needed for moderate to severe pain 10 tablet 0 03/05/2022 Active bacitracin 500 UNIT/GM OINTIndications:Bl adder diverticulum Apply topically 3 times daily Apply to tip of penis while street catheter is present. 0 03/05/2022 Active tadalafil (CIALIS) 20 MG tablet Take 10-20 mg by mouth every 48 hours as needed 0 12/09/2020 03/04/2022 Discontinue d(Patient Discharge) Active Problems Problem Noted Date Diagnosed Date Bladder diverticulum 03/04/2022 Social History Tobacco Use Types Packs/Day Years Used Date Smoking Tobacco: Never Smokeless Tobacco: Never Alcohol Use Standard Drinks/Week Comments Yes 0 (1 standard drink = 0.6 oz pur e alcohol) 4/week mod Adolescent Education Answer Date Record ed Getting School Help Needed Not on file 05/17 Sex and Gender Information Value Date Recorded Sex Assigned at Not on file Gender Identity Not on file Sexual Orientation Not on file Last Filed Vital Signs Vital Sign Reading Time Taken Comments Blood Pressure 123/61 03/05/2022 8:34 AM CDT Pulse 53 03/05/2022 8:34 AM CDT Temperature 37 ??C (98.6 ??F) 03/05/2022 8:34 AM CDT Respiratory Rate 17 03/05/2022 8:34 AM CDT Oxygen Saturation 93% 03/05/2022 8:34 AM CDT Inhaled Oxygen Concentration - - Weight 74.1 kg (163 lb 6.4 oz) 03/04/2022 12:49 PM CDT Height 171.5 cm (5' 7.5) 03/04/2022 6:00 AM CDT Body Mass Index 25.21 03/04/2022 6:00 AM CDT Plan of Treatment Health Maintenance Due Date Last Done Comments ADVANCE CARE PLANNING 1955 ANNUAL REVIEW OF HM ORDERS 1954 CT COLONOGRAPHY 1954 FIT 1954 FLEX SIG 1954 sDNA (Cologuard) 1954 HEPATITIS C SCREENING 1972 LIPID 1989 ZOSTER IMMUNIZATION (1 of 2) 2004 RSV VACCINE ( & 60+) (1 - 1-dose 60+ series) 2014 AORTIC ANEURYSM SCREENING (SYSTEM ASSIGNED) 2019 FALL RISK ASSESSMENT 2019 MEDICARE ANNUAL WELLNESS VISIT 2019 PHQ-2 (once per calendar year) 2022 COLONOSCOPY 11/23/2022 11/23/2012 COLORECTAL CANCER SCREENING 11/23/2022 DTAP/TDAP/TD IMMUNIZATION (3 - Td or Tdap) 12/11/2022 12/11/2012, 12/06/2007 COVID-19 Vaccine (4 - 2022- season) 2023 08/29/2021, 11/22/2020, 10/25/2020 INFLUENZA VACCINE (#1) 2023 2, 06/15/2021, 12/24/2020, Additional history exists Pneumococcal Vaccine: 65+ Years Completed 03/22/2020, 09/25/2019, 08/29/2018, Additional history exists HPV IMMUNIZATION Aged Out No longer e ligible based on patient's age to complete this topic IPV IMMUNIZATION Aged Out No longer e ligible based on patient's age to complete this topic MENINGITIS IMMUNIZATION Aged Out No l onger eligible based on patient's age to complete this topic RSV MONOCLONAL ANTIBODY Aged Out No l onger eligible based on patient's age to complete this topic Advance Directives For more information, please contact: [phone] Latest Code Status on File Code Status Date Activated Date Inactivated Comments Full Code 03/04/2022 6:39 PM 03/05/2022 3:16 PM All b asic and advanced life-sustaining interventions are performed as appropriate Question Answer Comments Code status determined by: Discussion with patient/ legal decision maker Code Status History Code Status Date Activated Date Inactivated Comments Full Code 03/04/2022 6:39 PM 03/04/2022 6:39 PM All b asic and advanced life-sustaining interventions are performed as appropriate Question Answer Comments Code status determined by: Discussion with patient/ legal decision maker Care Teams High School Academic Coach Relationship Specialty Start Date End Date Carlos Eduardo Wilson PA-C [facility] [address] [place] [address] [place] [address] PCP - General 03/01/22
--- OUTSIDE RECORDS SUMMARY | 2023-09-02 14:33 | XMS_ITS | Continuity of Care Document ---
Author Name Unknown Organization [facility] Address [address] [address] [place] [address] Phone Care Team Providers Care Manager Ct Name Role Phone Unavailable Unavailable Unavailable Advance Directives Directive Yes / No Effective Date File Name No Information Encounters Encounter Description Practice Location Reason(s) For Visit Diagnoses Date Provider Providers Copied on Encounter [facility], [address] [address], [place], [place], [id number], tel:[phone] [facility] No Information 200 5 No Information Referring Provider: Nohemi Balderas, [facility] [address] [facility] [address], [place], [address]. tel:[phone] Family History Family Member Type Diagnosis Age At Onset No Information Payers Payer name Insurance type Covered libertarian ID Authoriza tion(s) [employer] [id number] Social History Type Description Quantity Date Captured Comments Sex Male Smoking Status No Information Chief Complaint And Reason For Visit No Information Reason For Referral Reason For Referral No Information History Of Present Illness Encounter Date Complaint History Of Prese nt Illness No Information Functional Status Date Functional Assessmen t No Information Instructions Date Instruction Additional Infor mation No Information Assessments Type Assessment Date No Information Patient Care Teams Name Effective Dates (start - stop) Status Members No Information
--- OUTSIDE RECORDS SUMMARY | 2023-09-02 14:33 | XMS_ITS | Referral Summary ---
Author Name Unknown Organization [facility] Address [address] [place] [address] Care Team Providers Care Broadcast Operations Manager Name Role Phone Unavailable Primary Care Provider Unavailabl e Source Comments Patient records contain information from all sites at [facility]. For routine questions regarding patient records, call [phone] during business hours, M-F 8:00 AM - 5:00 PM Central Time. Record requests for emergency care only can be directed to [phone] at any time.[facility] Allergies Active Allergy Reactions Criticality Noted Date [...] PSA: 9.7, Grade Group: 2) - Unsigned Social History Tobacco Use Types Packs/Day Years [...] Mass Index - - Plan of Treatment Not on file
--- OUTSIDE RECORDS SUMMARY | 2023-09-02 14:33 | XMS_ITS | Encounter Summary ---
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 [address] [place] [address] [facility] Referral ID Status Reason Start Date Expiration Date V isits Requested Visits Authorized [id number] Authorized 01/22/2023 01/22/2024 1 1 Encounter Details Date Type Department Care Team (Late st Contact Info) Description 01/22/2023 [facility] [address] [place] [address] Carlos Eduardo Wilson P.A.-C. 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) (Primary Dx) Social History Tobacco Use Types Packs/Day Years Used Date Smoking Tobacco: Never Assessed Nutrition Answer Date Recorded Nutrition: EVOO Fat Source Unknown 01/22 Nutrition: Servings of Fruits/Vegetables per Day Not on file 01/22/2023 Dental Answer Date Recorded Dental: Regular Dentist Unknown 01/23/20 Sex and Gender Information Value Date Recorded Sex Assigned at Not on file Gender Identity Not on file Sexual Orientation Not on file documented as of this encounter Plan of Treatment Scheduled Referrals Name Type Priority Associated Diagnoses Orde r Schedule Radiation Oncology Referral Outpatient Referral Routine 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
--- OUTSIDE RECORDS SUMMARY | 2023-09-02 14:34 | XMS_ITS | Referral Summary ---
Author Name Unknown Organization [facility] Address [address] [place] [address] Care Team Providers Care Plsql Developer Name Role Phone Carlos Eduardo Wilson PA-C Primary Care Provider [phone] Allergies Active Allergy Reactions Criticality Noted Date [...] 03/04/2022 6:00 AM CDT Plan of Treatment Not on file Advance Directives For more information, please contact: [phone] Latest Code Status on File Code Status [...] with patient/ legal decision maker Care Teams Plsql Developer Relationship Specialty Start Date End Date Carlos Eduardo Wilson PA-C [place] [address] [place] [address] PCP - General 03/01/22
--- OUTSIDE RECORDS SUMMARY | 2023-09-02 14:34 | XMS_ITS | Encounter Summary ---
Author Name Unknown Organization [facility] Address [address] [place] [address] Care Team Providers Care Glass Embosser Name Role Phone Carlos Eduardo Wilson PA-C Primary Care Provider [phone] Encounter Details Date Type Department Care Team (Late st Contact Info) Description 03/01/2022 External Order Results [facility] [address] [place] [address] Outside, Provider Social History Tobacco Use Types Packs/Day Years Used Date Smoking Tobacco: Never Assessed Sex and Gender Information Value Date Recorded Sex Assigned at Not on file Gender Identity Not on file Sexual Orientation Not on file COVID-19 Exposure Response Date Recorded In the last 10 days, have yo u been in contact with someone who was confirmed or suspected to have Coronavirus/COVID-19? No / Unsure 03/04/2022 1:21 PM CDT documented as of this encounter Plan of Treatment Not on file documented as of this encounter Procedures Procedure Name Priority Date/Time Associated Diagnosis Comments COVID-19 VIRUS (CORONAVIRUS) BY PCR (EXTERNAL RESULT) Routine 03/01/2022 10:43 AM CDT documented in this encounter Results * COVID-19 Virus (Coronavirus) by PCR (External Result) (03/01/2022 10:43 AM CDT) COVID-19 Virus by PCR (External Result) Negative Negative NON-INTERFACE D (ONBASE SCANS) 03/01/2022 10:4 3 AM CDT Narrative [facility] - 03/20/2022 3:07 PM CDT Verified by Roxanna Velazquez on 03/20/2022. Provider Outside [facility]ORAT[facility] NON-INTERFACED (ONBASE SCANS) documented in this encounter Visit Diagnoses Not on filedocumented in this encounter Care Teams Glass Embosser Relationship Specialty Start Date End Date Carlos Eduardo Wilson PA-C [place] [address] [place] [address] PCP - General 03/01/22 documented as of this encounter
--- OUTSIDE RECORDS SUMMARY | 2023-09-02 14:34 | XMS_ITS | Encounter Summary ---
Author Name Unknown Organization [facility] Address [address] [place] [address] Care Team Providers Care Blocker Automatic Name Role Phone Carlos Eduardo Wilson PA-C Primary Care Provider [phone] Encounter Details Date Type Department Care Team (Late st Contact Info) Description 03/01/2022 External Order Results [facility] [address] [place] [address] Outside, Provider Social History Tobacco Use Types [...] documented as of this encounter Visit Diagnoses Not on filedocumented in this encounter Care Teams Blocker Automatic Relationship Specialty Start Date End Date Carlos Eduardo Wilson PA-C [address] [place] [address] PCP - General 03/01/22 documented as of this encounter
--- OUTSIDE RECORDS SUMMARY | 2023-09-02 14:34 | XMS_ITS | Clinical Summary ---
Author Name Unknown Organization [facility] Address [place], [place] [address] Care Team Providers Care Graphic Editor Name Role Phone [facility] Primary Care Provider Unavailabl e Allergies Active Allergy Reactions Criticality Noted Date Comments Atorvastatin Headache 03/04/2022 Hymenoptera Allergenic Extract *Unknown 03/23 Morphine Rash Low 03/04/2022 Pollen Extracts Rash 10/15/2022 Pravastatin Headache,Nausea Only 03/04/2022 Medications Medication Sig Dispensed Refills Start Date End Date Status multivitamin (MULTIPLE VITAMIN) tablet take 1 tablet by oral route once daily with food 0 0 9 Active tamsulosin (FLOMAX) 0.4 mg capsule tamsulosin 0.4 mg capsule TAKE TWO CAPSULES BY MOUTH EVERY DAY 0 Active sildenafil citrate (VIAGRA) 100 mg tablet sildenafil 100 mg tablet TAKE ONE-HALF TO ONE TABLET BY MOUTH DAILY NEEDED . 0 Active acetaminophen (Tylenol Extra Strength) 500 mg tablet Take 1,000 mg by mouth every 6 hours if needed. Max acetaminophen dose: 4000mg in 24 hrs. 0 Active bacitracin ointment Apply topically to affected area(s) two times daily. 0 3 Active docusate (COLACE) 100 mg capsuleIndication s:S/P prostatectomy Take 1 Capsule (100 mg) by mouth every 12 hours. 30 Capsule 0 3 Active oxyCODONE (ROXICODONE) 5 mg immediate release tabletIndications :S/P prostatectomy Take 1 to 2 Tablets (5-10 mg) by mouth every 4 hours if needed for Pain (For severe pain.). 8 Tablet 0 3 Active latanoprost (XALATAN) 0.005 % ophthalmic solutionIndicatio ns:Primary open angle glaucoma (POAG) of both eyes, mild stage INSTILL ONE DROP IN EACH EYE EVERY EVENING 7.5 mL 1 3 Active dorzolamide-timol oL (COSOPT) 2-0.5 % ophthalmic solutionIndicatio ns:Primary open angle glaucoma (POAG) of both eyes, moderate stage INSTILL 1 DROP INTO BOTH EYES TWICE DAILY. 10 mL 3 3 Active dorzolamide (TRUSOPT) 2 % ophthalmic solutionIndicatio ns:Primary open angle glaucoma (POAG) of both eyes, moderate stage Place 1 Drop into both eyes two times daily. 10 mL 0 3 Active timoloL maleate (TIMOPTIC) 0.5 % ophthalmic solutionIndicatio ns:Primary open angle glaucoma (POAG) of both eyes, moderate stage Place 1 Drop into both eyes two times daily. 5 mL 0 3 Active dorzolamide-timol oL (Cosopt) 2-0.5 % ophthalmic solutionIndicatio ns:Primary open angle glaucoma (POAG) of both eyes, moderate stage Place 1 Drop into both eyes two times daily. 10 mL 3 3 08/11/20 23 Discontinued Active Problems Problem Noted Date Diagnosed Date Hyperopia of both eyes with astigmatism and pres byopia 06/17/2023 Nuclear senile cataract of both eyes 01/03/2021 Primary open angle glaucoma (POAG) of both eyes, moderate stage 03/04/2019 BPH without urinary obstruction 04/01/2017 Screen for colon cancer 09/02/2012 Overview: Colonoscopy 08/2012 normal repeat in 10 years Calculus of kidney 05/06/2006 Encounters Date Type Department Care Team Description 08/12/2023 Telephone [facility] [address] [place] [address] Jose López, OD Questions 08/10/2023 Refill [facility] [address] [place] [address] Jose López, OD Refill Request (Dorzolamide-timolol ) 06/17/2023 1:00 PM CDT Office Visit [facility] [address] [place] [address] Jose López, OD Eye Exam (CEE) 06/17/2023 Travel from Last 3 Months Immunizations Name Administration Dates Next Due COVID-19 vaccine (Vocab-[employer] 30mcg/0.3mL) PF, MDV 08/25/2019,08/25/2018 Covid-19 Vaccine (Unspecified) 2,08/25/2021,09/23/2020,2020 Influenza Virus, Unspecified 06/23/2022, 08/25/2021,12/24/2020,2019,10/02/2018 Influenza, High-dose Inactivated 07/12/2019 Influenza, IIV3 (Age >=3 years) 07/17/20 12(Deferred: Patient Refused - pt left) Influenza, Inactivated AIIV4 (Age 65+ Years) Preserv Free 06/25/2022,06/15/2021,05/23/2020 Pneumococcal Poly,23-Valent (Pneumovax) 03/22/2020 Pneumococcal, Unspecified 09/25/2019,08/2019,08/29/2018,2018 Tdap 12/11/2012 Tdap, Unspecified 12/06/2007 Family History Medical History Relation Name Comments Arthritis Mother Genetic Other 1 cataracts-mothe r Genetic Other 2 cataracts-mothe r~HTN-brother, father () Relation Name Status Comments Father Maternal Grandfather Maternal Grandmother Mother Alive Other 1 Other 2 Paternal Grandfather Paternal Grandmother Social History Tobacco Use Types Packs/Day Years Used Date Smoking Tobacco: Never Smokeless Tobacco: Never Alcohol Use Standard Drinks/Week Comments Yes 0 (1 standard drink = 0.6 oz pure alcohol) Alcoholic Drinks/day: infrequent weekend use Social Connections Answer Date Recorded Frequency of Communication with Friends and Fami ly Not on file 02/28/2023 Sex and Gender Information Value Date Recorded Sex Assigned at Not on file Gender Identity Not on file Sexual Orientation Not on file Obstetrics History Last Filed Vital Signs Vital Sign Reading Time Taken Comments Blood Pressure 137/74 03/06/2023 7:22 AM CDT Pulse 59 03/06/2023 7:22 AM CDT Temperature 36.9 ??C (98.5 ??F) 03/06/2023 7:22 AM CD T Respiratory Rate 16 03/06/2023 3:43 AM CDT Oxygen Saturation 92% 03/06/2023 7:22 AM CDT Inhaled Oxygen Concentration - - Weight 73.1 kg (161 lb 3.2 oz) 03/06/2023 4:03 A M CDT Height 172.7 cm (5' 8) 03/05/2023 9:29 AM CDT Body Mass Index 24.51 03/05/2023 9:29 AM CDT Plan of Treatment Upcoming Encounters Date Type Department Care Team (Late st Contact Info) Description 10/17/2023 8:00 AM DIRECTOR OF RADIOLOGY Office [facility] [address] [facility] [address] [place], [place] [id number] Jose [place] [address] [place] [address] Health Maintenance Due Date Last Done Comments Zoster (shingles) series for age 50+ (1 of 2) 2004 Depression screening for age 12+ 04/01/2018 04/01/20 17, 03/15/2016 BMI (ht and wt on same day) for age 18+ 09/05/2018 09/05/2017, 04/01/2017, 03/15/2016 Medicare Wellness for age 65+ 2019 Pneumococcal series for age 65+ (2 of 2 - PCV) 03/22/2021 03/22/2020, 09/25/2019, 08/25/2019, Additional history exists Lipids for age 45-75 04/01/2022 04/01/2017, 07/24/2012, 11/28/2006 Colonoscopy through age 75 09/02/2022 09/02/2012 Tetanus booster 12/11/2022 12/11/2012, 12/06/2007 COVID-19 vaccine series ( season) 2023 08/29/2021, 08/29/2021, 08/25/2021, Additional history exists Influenza for age 65+ 04/25/2023 06/25/2022 , 06/23/2022, 08/25/2021, Additional history exists Tdap Completed 12/11/2012, 12/06/2007 Hepatitis C screening for ag e 18-79 Completed 04/01/2017 Advance Directives Latest Code Status on File Code Status Date Activated Date Inactivated Comments Full Code 03/05/2023 4:20 PM 03/06/2023 1:48 PM Question Answer Comments Code Status Discussion: Reviewed Preferences Code Status History Code Status Date Activated Date Inactivated Comments Full Code 03/05/2023 9:04 AM 03/05/2023 4:20 PM Question Answer Comments Code Status Discussion: Unable to Assess Preferences, Provider to review later Care Teams Graphic Editor Relationship Specialty Start Date End Date [facility] - General 12/01/17
[2023-09-02 18:42] LABS: PSA Screen* < 0.06 ng/mL (0.10-4.00)
== END 2023-09-02 13:49 | disposition home or self-care (01) ==
LOC: NPINS 13:48
PROVIDERS: Family Medicine; PCP Physician Assistant Medical; Visit Provider Urology
DX: Z12.5 Encounter for screening for malignant neoplasm of prostate (principal)
CPT/HCPCS: G0103

== ENCOUNTER 2024-03-02 14:51 | Outpatient (REF) | payer MEDICARE, SELFPAY ==
--- OUTSIDE RECORDS SUMMARY | 2024-03-02 14:56 | XMS_ITS ---
Author Organization [facility] Address [address] [place] [address] Care Team Providers Care Research Food Technologist Name Role Phone Unavailable Unavailable Unavailable Surgery Details Not on file Complications Check Surgery Details section. Procedure Estimated Blood Loss Check Surgery Details section. Procedure Findings Check Surgery Details section. Procedure Specimens Taken Check Surgery Details section.
--- OUTSIDE RECORDS SUMMARY | 2024-03-02 14:56 | XMS_ITS | Clinical Summary ---
Author Organization [facility] Address [place], [place] [address] Care Team Providers Care Tabular Typist Name Role Phone [facility] Primary Care Provider Unavailabl e Allergies Active Allergy Reactions Criticality Noted Date Comments Atorvastatin Headache 03/04/2022 Hymenoptera Allergenic Extract *Unknown 03/23 Morphine Rash Low 03/04/2022 Pollen Extracts Rash 10/15/2022 Pravastatin Headache,Nausea Only 03/04/2022 Medications Medication Sig Dispensed Refills Start Date End Date Status multivitamin (MULTIPLE VITAMIN) tablet take 1 tablet by oral route once daily with food 0 0 08/04/2009 Active tamsulosin (FLOMAX) 0.4 mg capsule tamsulosin 0.4 mg capsule TAKE TWO CAPSULES BY MOUTH EVERY DAY Active sildenafil citrate (VIAGRA) 100 mg tablet sildenafil 100 mg tablet TAKE ONE-HALF TO ONE TABLET BY MOUTH DAILY NEEDED . Active acetaminophen (Tylenol Extra Strength) 500 mg tablet Take 1,000 mg by mouth every 6 hours if needed. Max acetaminophen dose: 4000mg in 24 hrs. Active bacitracin ointment Apply topically to affected area(s) two times daily. 0 03/06/2023 Active docusate (COLACE) 100 mg capsuleIndications: S/P prostatectomy Take 1 Capsule (100 mg) by mouth every 12 hours. 30 Capsule 03/06/2023 Active oxyCODONE (ROXICODONE) 5 mg immediate release tabletIndications:S /P prostatectomy Take 1 to 2 Tablets (5-10 mg) by mouth every 4 hours if needed for Pain (For severe pain.). 8 Tablet 03/06/2023 Active dorzolamide-timoloL (COSOPT) 2-0.5 % ophthalmic solutionIndications :Primary open angle glaucoma (POAG) of both eyes, moderate stage INSTILL 1 DROP INTO BOTH EYES TWICE DAILY. 10 mL 3 08/11/2023 Active dorzolamide (TRUSOPT) 2 % ophthalmic solutionIndications :Primary open angle glaucoma (POAG) of both eyes, moderate stage Place 1 Drop into both eyes two times daily. 10 mL 08/12/2023 Active timoloL maleate (TIMOPTIC) 0.5 % ophthalmic solutionIndications :Primary open angle glaucoma (POAG) of both eyes, moderate stage Place 1 Drop into both eyes two times daily. 5 mL 08/12/2023 Active latanoprost (XALATAN) 0.005 % ophthalmic solutionIndications :Primary open angle glaucoma (POAG) of both eyes, mild stage INSTILL 1 DROP INTO EACH EYE EVERY EVENING 7.5 mL 1 10/31/2023 Active Active Problems Problem Noted Date Diagnosed Date Hyperopia of both eyes with astigmatism and pres byopia 06/17/2023 Nuclear senile cataract of both eyes 01/03/2021 Primary open angle glaucoma (POAG) of both eyes, moderate stage 03/04/2019 BPH without urinary obstruction 04/01/2017 Screen for colon cancer 09/02/2012 Overview: Colonoscopy 08/2012 normal repeat in 10 years Calculus of kidney 05/06/2006 Immunizations Name Administration Dates Next Due COVID-19 vaccine ([facility] 30mcg/0.3mL) PF, MDV 08/25/2019,08/25/2018 Covid-19 Vaccine (Unspecified) [...] Care Team (Late st Contact Info) Description 03/11/2024 8:20 AM CDT Office Visit [facility] [address] [place] [address] Jose [place], [place] [address] [place], [place] [id number] Health Maintenance Due Date Last Done Comments [...] booster 12/11/2022 12/11/2012, 12/06/2007 COVID-19 vaccine series (2022-24 season) 2023 08/29/2021, 08/25/2021, 11/22/2020, Additional history exists Influenza for age 65+ 04/25/2024 06/25/2022 , 06/23/2022, 08/25/2021, Additional history exists Tdap Completed 12/11/2012, 12/06/2007 Hepatitis C screening for ag e 18-79 Completed 04/01/2017 Procedures Procedure Name Priority Date/Time Associated Diagnosis Comments ANTI HCV Routine 04/01/2017 8:26 AM CDT Need for hepatitis C screening test LIPID PANEL W REFLEX MEASURED LDL Routine 04/01/2017 8:26 AM CDT Lipid screening from Last 3 Months or Most Recently Relevant to Health Maintenance Results * LIPID PANEL W REFLEX MEASURED LDL (04/01/2017 8:26 AM CDT) CHOLESTEROL,TOTAL 174 100 - 199 mg/dL 04/01/2017 5:17 PM CDT [facility] TRIGLYCERIDES 134 <150 mg/dL 04/01/2017 5:17 PM CDT [facility] HDL CHOLESTEROL 43 >40 mg/dL 08/08/201 7 5:17 PM CDT [facility] NON-HDL CHOLESTEROL 131 <145 mg/dl 04/01/2017 5:17 PM CDT [facility] CHOL/HDL RATIO 4.05 <4.50 04/01/2017 5:17 PM CDT [facility] LDL CHOLESTEROL 104 <=130 mg/dL 04/01/2017 5:17 PM CDT [facility] PATIENT STATUS FASTING 04/01/2017 5:17 PM CDT [facility] Blood BLOOD SPECIMEN / Unknown Venipuncture / Unknown 04/01/2017 8:26 AM CDT 04/01/2017 8:26 AM CDT Nu Romeo MD CHEMISTRY [facility] [address] [place] [address], [place] * ANTI HCV [74718.2] (04/01/2017 8:26 AM CDT) HEPATITIS C ANTIBODY Non-Reacti ve Non-Reacti ve 04/01/2017 5:33 PM CDT [facility] Blood BLOOD SPECIMEN / Unknown Venipuncture / Unknown 04/01/2017 8:26 AM CDT 04/01/2017 8:26 AM CDT Narrative [facility] - 04/01/2017 5:33 PM CDT Antibodies to HCV not detected; does not exclude the possibility of exposure to HCV. Nu Romeo MD SEND OUTS [facility] [address] [place] [address], from Last 3 Months or Most Recently Relevant to Health Maintenance Advance Directives * Full Code (Latest Code Status on File) Date Activated Date Inactivated Comments 03/05/2023 4:20 PM 03/06/2023 1:48 PM Question Answer Comments Code Status Discussion: Reviewed Preferences * Full Code Date Activated Date Inactivated Comments 03/05/2023 9:04 AM 03/05/2023 4:20 PM Question Answer Comments Code Status Discussion: Unable to Assess Preferences, Provider to review later Care Teams Tabular Typist Relationship Specialty Start Date End Date [facility] PCP - General 12/01/17
--- OUTSIDE RECORDS SUMMARY | 2024-03-02 14:56 | XMS_ITS | Encounter Summary ---
Author Organization [facility] Address [address] [place] [address] Care Team Providers Care Mobile Electronics Installer Name Role Phone Carlos Eduardo Wilson PA-C Primary Care Provider [phone] Encounter Details Date Type Department Care Team (Late st Contact Info) Description 03/01/2022 External Order Results [facility] [address] [place] [address] Outside, Provider Social History Tobacco Use Types [...] on filedocumented in this encounter Care Teams Mobile Electronics Installer Relationship Specialty Start Date End Date Carlos Eduardo Wilson PA-C [facility] [address] [place] [address] [place] [address] PCP - General 03/01/22 documented as of this encounter
--- OUTSIDE RECORDS SUMMARY | 2024-03-02 14:56 | XMS_ITS | Encounter Summary ---
Author Organization [facility] Address [address] [place] [address] Care Team Providers Care Cafe Associate Name Role Phone Carlos Eduardo Wilson PA-C Primary Care Provider [phone] Encounter Details Date Type Department Care Team (Late st Contact Info) Description 03/01/2022 External Order Results [facility] [address] [place] [address] Outside, Provider Social History Tobacco Use Types [...] on filedocumented in this encounter Care Teams Cafe Associate Relationship Specialty Start Date End Date Carlos Eduardo Wilson PA-C [place] [address] [place], [place] [id number] PCP - General 03/01/22 documented as of this encounter
--- OUTSIDE RECORDS SUMMARY | 2024-03-02 14:56 | XMS_ITS | Referral Summary ---
Author Organization [facility] Address [address] [place] [address] Care Team Providers Care Principal Statistical Scientist Name Role Phone Unavailable Primary Care Provider Unavailabl e Source Comments Patient records contain information from all sites at [facility]. For routine questions regarding patient records, call [phone] during business hours, M-F 8:00 AM - 5:00 PM Central Time. Record requests for emergency care only can be directed to [phone] at any time.[facility] Allergies Active Allergy Reactions Criticality Noted Date Comments Pollen Extracts Rash 10/15/2022 Medications Medication Sig Dispensed Refills Start Date End Date Status acetaminophen (TYLENOL) 500 mg tablet Take 1,000 mg by mouth as needed. Active tamsulosin (FLOMAX) 0.4 mg 24 hr capsule Take 0.4 mg by mouth daily. Active sildenafiL (VIAGRA) 100 mg tablet Take 100 mg by mouth daily. 05/24/2022 Active multivitamin tablet Take by mouth. 08/04/2009 A ctive Active Problems Problem Noted [...] Date Recorded Dental: Regular Dentist Unknown 01/23/20 23 Sex and Gender Information Value Date Recorded [...] - Plan of Treatment Not on file Procedures Procedure Name Priority Date/Time Associated Diagnosis Comments EXTI BASIC METABOLIC PANEL, FASTING, S Routine 03/05/2022 6:24 AM CDT from Last 3 Months or Most Recently Relevant to Health Maintenance
--- OUTSIDE RECORDS SUMMARY | 2024-03-02 14:56 | XMS_ITS | Clinical Summary ---
Author Organization [facility] Address [address] [place] [address] Care Team Providers Care Upholsterer Helper Name Role Phone Carlos Eduardo Wilson PA-C Primary Care Provider [phone] Allergies Active Allergy Reactions Criticality Noted Date Comments Atorvastatin Headache 03/04/2022 Morphine Rash Low 03/04/2022 Pravastatin Headache,GI Disturbance 03/04/2022 Medications Medication Sig Dispensed Refills Start Date End Date Status latanoprost (XALATAN) 0.005 % ophthalmic solution Place 1 drop into both eyes every evening Active tamsulosin (FLOMAX) 0.4 MG capsule Take 0.8 mg by mouth daily Active timolol maleate (TIMOPTIC) 0.5 % ophthalmic solution Place 1 drop into both eyes daily Active acetaminophen (TYLENOL) 500 MG tablet Take 1,000 mg by mouth every 6 hours as needed for mild pain Active multivitamin (CENTRUM SILVER) tabletIndications: Bladder diverticulum Take 1 tablet by mouth daily 03/18/2022 Active oxyCODONE (ROXICODONE) 5 MG tabletIndications: Bladder diverticulum Take 1 tablet (5 mg) by mouth every 6 hours as needed for moderate to severe pain 10 tablet 03/05/2022 Active bacitracin 500 UNIT/GM OINTIndications:Bl adder diverticulum Apply topically 3 times daily Apply to tip of penis while street catheter is present. 03/05/2022 Active tadalafil (CIALIS) 20 MG tablet Take 10-20 mg by mouth every 48 hours as needed 12/09/2020 03/04/2022 Discontinue d(Patient Discharge) Active Problems [...] (Cologuard) 1954 HEPATITIS C SCREENING 1972 LIPID 1994 ZOSTER IMMUNIZATION (1 of 2) 2004 RSV VACCINE ( & 60+) (1 - 1-dose 60+ series) 2014 FALL RISK ASSESSMENT 2019 MEDICARE ANNUAL WELLNESS VISIT 2019 COLONOSCOPY 11/23/2022 11/23/2012 COLORECTAL CANCER SCREENING 11/23/2022 DTAP/TDAP/TD IMMUNIZATION (3 - Td or Tdap) 12/11/2022 12/11/2012, 12/06/2007 COVID-19 Vaccine (4 - season) 2023 08/29/2021, 11/22/2020, 10/25/2020 PHQ-2 (once per calendar year) 2023 INFLUENZA VACCINE (Season Ended) 2024 08/25/2021, 06/15/2021, 12/24/2020, Additional history exists GLUCOSE 03/05/2025 03/05/2022, 03/05/2022 Pneumococcal Vaccine: 65+ Years Completed 03/22/2020, 09/25/2019, [...] on patient's age to complete this topic Procedures Procedure Name Priority Date/Time Associated Diagnosis Comments BASIC METABOLIC PANEL Routine 03/05/2022 6:24 AM CDT from Last 3 Months or Most Recently Relevant to Health Maintenance Results * (ABNORMAL) Basic metabolic panel (03/05/2022 6:24 AM CDT) Sodium 138 136 - 145 mmol/L 03/05/2022 7:08 AM CDT [facility] Potassium 4.9 3.5 - 5.0 mmol/L 03/05/2022 7:08 AM CDT [facility] Chloride 105 98 - 107 mmol/L 03/05/2022 7:08 AM CDT [facility] Carbon Dioxide (CO2) 30 22 - 31 mmol/L 03/05/2022 7:08 AM CDT [facility] Anion Gap 3(L) 5 - 18 mmol/L 03/05/2022 7:08 AM CDT [facility] Urea Nitrogen 13 8 - 22 mg/dL 03/05/2022 7:08 AM CDT [facility] Creatinine 0.87 0.70 - 1.30 mg/dL 03/05/2022 7:08 AM CDT [facility] Calcium 8.9 8.5 - 10.5 mg/dL 03/05/2022 7:08 AM CDT [facility] Glucose 135(H) 70 - 125 mg/dL 03/05/2022 7:08 AM CDT [facility] GFR Estimate >90 >60 mL/min/1.7 3m2 03/05/2022 7:08 AM CDT [facility] Comment:Effective July 262020 eGFRcr in adults is calculated using the 2020 CKD-EPI creatinine equation which includes age and gender (Abilio et al., NEJM, DOI: 10.1056/DHLMtd2778579) Blood STRUCTURE OF RIGHT UPPER LIMB / Unknown Venipuncture / Unknown 03/05/2022 6:24 AM CDT 03/05/2022 6:27 AM CDT Elliott Johnson MD LAB - BLOOD TEENA SALAS [facility] Organization Address City/State/ZIP Co de Phone Number [facility] [address] [place] [address], [facility] [phone] from Last 3 Months or Most Recently Relevant to Health Maintenance Advance Directives For more information, please contact: [phone] * Full Code (Latest Code Status on File) Date Activated Date Inactivated Comments 03/04/2022 6:39 PM 03/05/2022 3:16 PM All basic an d advanced life-sustaining interventions are performed as appropriate Question Answer Comments Code status determined by: Discussion with christen nt/ legal decision maker * Full Code Date Activated Date Inactivated Comments 03/04/2022 6:39 PM 03/04/2022 6:39 PM All basic an d advanced life-sustaining interventions are performed as appropriate Question Answer Comments Code status determined by: Discussion with christen nt/ legal decision maker Care Teams Upholsterer Helper Relationship Specialty Start Date End Date Carlos Eduardo Wilson PA-C [facility] [address] [place] [id number] PCP - General 03/01/22
--- OUTSIDE RECORDS SUMMARY | 2024-03-02 14:56 | XMS_ITS | Clinical Summary ---
Author Organization [facility] Address [address] [place] [address] Care Team Providers Care Application Security Consultant Name Role Phone Unavailable Primary Care Provider Unavailabl e Source Comments Patient records contain information from all sites at [facility]. For routine questions regarding patient records, call [phone] during business hours, M-F 8:00 AM - 5:00 PM Central Time. Record requests for emergency care only can be directed to [phone] at any time.[facility] Allergies Active Allergy Reactions Criticality Noted [...] PHQ-2) 08/25/2023 Fall Risk Screen (Annual) 08/25/2023 Influenza Vaccine (#1) 2024 , 06/25/2022, 06/23/2022, Additional history exists Fasting Glucose for Diabetes Screening 03/05/2025 03/05/2022 DTaP,Tdap,and Td Vaccines (4 - Td or Tdap) 02/28/2033 02/28/2023, 12/11/2012, 12/06/2007 Procedures Procedure Name Priority Date/Time Associated Diagnosis Comments EXTI BASIC METABOLIC PANEL, FASTING, S Routine 03/05/2022 6:24 AM CDT from Last 3 Months or Most Recently Relevant to Health Maintenance
--- OUTSIDE RECORDS SUMMARY | 2024-03-02 14:56 | XMS_ITS | Referral Summary ---
Author Organization [facility] Address [address] [place] [id number] Care Team Providers Care Junior Manufacturing Engineer Name Role Phone Carlos Eduardo Wilson PA-C Primary Care Provider [phone] Allergies Active Allergy Reactions Criticality Noted Date [...] CDT Plan of Treatment Not on file Procedures Procedure Name Priority Date/Time Associated Diagnosis Comments BASIC METABOLIC PANEL Routine 03/05/2022 6:24 AM CDT from Last 3 Months or Most Recently Relevant to Health Maintenance Results * (ABNORMAL) Basic metabolic panel (03/05/2022 6:24 AM CDT) Sodium 138 136 - 145 mmol/L 03/05/2022 7:08 AM CDT [facility] Potassium 4.9 3.5 - 5.0 mmol/L 03/05/2022 7:08 AM CDT [facility] Chloride 105 98 - 107 mmol/L 03/05/2022 7:08 AM CDT [facility] Carbon Dioxide (CO2) 30 22 - 31 mmol/L 03/05/2022 7:08 AM CDT [facility] Anion Gap 3(L) 5 - 18 mmol/L 03/05/2022 7:08 AM CDT [facility] Urea Nitrogen 13 8 - 22 mg/dL 03/05/2022 7:08 AM CDT [facility] Creatinine 0.87 0.70 - 1.30 mg/dL [...] and gender (Abilio et al., NEJM, DOI: [id number]/[id number]) Blood STRUCTURE OF RIGHT UPPER LIMB / Unknown Venipuncture / Unknown 03/05/2022 6:24 AM CDT 03/05/2022 6:27 AM CDT Elliott Johnson MD LAB - BLOOD TEENA [facility] Organization Address City/State/ZIP Co de Phone Number [facility] [address] [place] [address], [facility] [phone] from Last 3 Months or Most Recently Relevant to Health Maintenance Advance Directives For more information, please contact: [phone] * Full Code (Latest Code Status on File) Date Activated Date Inactivated Comments 03/04/2022 6:39 PM 03/05/2022 3:16 PM All basic an d advanced life-sustaining interventions are performed as appropriate Question Answer Comments Code status determined by: Discussion with christen brown/ legal decision maker * Full Code Date Activated Date Inactivated Comments 03/04/2022 6:39 PM 03/04/2022 6:39 PM All basic an d advanced life-sustaining interventions are performed as appropriate Question Answer Comments Code status determined by: Discussion with patie nt/ legal decision maker Care Teams Junior Manufacturing Engineer Relationship Specialty Start Date End Date Carlos Eduardo Wilson PA-C [place] [address] [place] [address] PCP - General 03/01/22
--- OUTSIDE RECORDS SUMMARY | 2024-03-02 14:56 | XMS_ITS | Clinical Summary ---
[facility] Organization [facility] Address [address] [place] [address] Care Team Providers Care Field Representatives Director Name Role Phone Fantasma Judd MD Primary Care Provider [phone] Source Comments You are receiving this document as you are listed as the primary care provider,follow-up provider, or the patient has been referred to you for consultation.This is in compliance with the Medicare and[employer] EHR Incentive Program,which states Providers who transition their patient to another setting of careor provider of care or refers their patient to another provider of care shouldprovide summary care record for each transition of care or referral. [facility] Allergies No known active allergies Medications Medication [...] 1954 Hep C Screening (Preventive Services) 1954 Adult Preventive Visit 1972 Cholesterol 1989 Zoster/Shingles (1 of 2) 2004 Pneumococcal 65+ Yrs (2 - PCV) 03/22/2021 03/22/2020 DTaP/Tdap/Td (3 - Tdap) 12/11/2022 12/12/19 13, 12/06/2007 COVID-19 Vaccine (3 - 2022-2 4 season) 2023 11/22/2020, 10/25/2020 Influenza (#1) 2024 05/23/2020, 07/12/2019 HepA Aged Out No longer [...] age to complete this topic Care Teams Field Representatives Director Relationship Specialty Start Date End Date Fantasma Judd MD [address] [place] [address] PCP - General Family Practice 01/14/19
[2024-03-02 17:26] LABS: PSA Diagnostic* < 0.06 ng/mL (0.10-4.00)
== END 2024-03-02 14:52 | disposition home or self-care (01) ==
LOC: NPINS 14:51
PROVIDERS: PCP Physician Assistant Medical; Referring Provider Urology; Visit Provider Urology
DX: Z85.46 Personal history of malignant neoplasm of prostate (principal)
CPT/HCPCS: 80053; 80061; 84153; 84443